=== PATIENT | male | born 1965 | race Hispanic/Latino ===

== ENCOUNTER 2019-08-12 13:25 | Inpatient (IN) | payer MEDICARE, OTHER ==
[2019-08-12] MEDS ORDERED: cefTRIAXone\\ROCEPHIN 2 GM VIAL ONE (13:51)
[2019-08-12] MEDS ORDERED: Vancomycin 1 GM/200 ML BAG ONE (13:51)
[2019-08-12] MEDS ORDERED: Sodium Chloride 0.9% 100 ML ONE ×2 (13:51)
[2019-08-12] MEDS ORDERED: Piperacillin/Tazobactam 4.5 GM VIAL ONE (13:51)
[2019-08-12 13:55] LABS: Hemoglobin 8.5 g/dL (14.0-18.0); Mean Corpuscular HGB CONC 31.6 g/dL (32.0-36.0); Mean Corpuscular Hemoglobin 28.3 pg (27.0-31.0); Mean Corpuscular Volume 89.5 fL (78.0-98.0); Mean Platelet Volume 7.8 fL (7.4-10.4); Platelet Count 410 thou/uL (130-400); Red Blood Cell (RBC) Count 3.01 mill/uL (4.70-6.10); White Blood Cell (WBC) Count 17.2 thou/uL (4.8-10.8)
[2019-08-12 14:15] LABS: ALT (SGPT) 70 U/L (8-55); AST (SGOT) 113 U/L (5-34); Albumin 2.8 g/dL (3.5-5.0); Alkaline Phosphatase 476 U/L (40-110); Anion Gap 16 mmol/L (10-20); BUN (Urea Nitrogen) 35 mg/dL (8.4-25.7); Bilirubin, Total 0.5 mg/dL (0.2-1.2); Calc. Creatinine Clearance 0 mL/min (70-130); Calcium 8.3 mg/dL (7.8-10.44); Carbon Dioxide 17 mmol/L (22-29); Chloride 93 mmol/L (98-107); Estimated GFR-MDRD 28; Globulin 4.2 g/dL (2.4-3.5); Potassium 5.1 mmol/L (3.5-5.1); Sodium 121 mmol/L (136-145)
[2019-08-12 14:17] LABS: Band 46 % (5-11); Hypochromia SLIGHT = 6-15 cells (100X) (0-5/hpf); Lymphocytes 1 % (21-51); MDiff Complete? YES; Metamyelocyte 1 % (0-0); Monocytes 2 % (0-10); Myelocyte 1 % (0-0); Neutrophil 50 % (42-75); Platelet Morphology Comment Appears Increased; Polychromasia SLIGHT = 2-3 cells (100X) (0-2/hpf); Reflex for Review?? NO
--- NOTE | 2019-08-12 14:21 | RAD ---
Chest one view HISTORY: Fever. FINDINGS: No comparison. Cardiac silhouette and pulmonary vasculature are unremarkable. Mediastinum i s midline. No confluent airspace consolidation or evidence of pneumothorax. IMPRESSION : No active cardiopulmonary abnormalities are demonstrated.
--- NOTE | 2019-08-12 14:24 | RAD ---
Right foot 3 views HISTORY: Ulceration. Diabetes. Fever. FINDINGS: No comparison. Old amputation deformities of the first, fourth, and fifth metatarsals. Abundant heterotopic ossifica tion about the tarsometatarsal joints. Erosive changes at the first tarsometatarsal joint. Prominent soft tissue swelling and gas about the medial and dorsal aspect of the foot. Evidence of ne uropathic joint best demonstrated on the lateral view. Prominent arterial calcifications. IMPRESSION : Prominent soft tissue swelling and soft tissue gas. Erosive changes at the first tarsometatarsal join t may represent infectious bone involvement. Evidence of neuropathic foot with destructive changes throughout the midfoot. Old amputation postoperative changes of the first, fourth, and fifth metatarsals. Atherosclerosis.
[2019-08-12 14:25] LABS: Glucose 676 mg/dL (70-105)
[2019-08-12] MEDS ORDERED: Insulin Regular 100 units/100 ml in NS IVPB SCH (15:00)
[2019-08-12] MEDS ORDERED: Insulin Regular 300 UNITS/3 ML VIAL ONE (15:12)
[2019-08-12 16:40] LABS: Lactic Acid 3.9 mmol/L (0.5-2.2)
[2019-08-12 17:05] LABS: Troponin I Less than 0.010 ng/mL (< 0.028)
[2019-08-12 17:22] LABS: Bilirubin Negative (Negative); Blood, Urine Trace (Negative); Clarity Clear (Clear); Glucose, Urine (Dipstick) Greater than 1000 mg/dL (Negative); Leukocyte Negative Leu/uL (Negative); Nitrite Negative (Negative); Protein, Urine (Dipstick) 20 mg/dL (Neg-Trace); RBC/HPF 0-3 HPF (0-3); Squamous Epithelial None Seen HPF (0-3); Urobilinogen Normal mg/dL (Less than 2); WBC/HPF 0-3 HPF (0-3)
[2019-08-12 17:23] LABS: Bacteria/HPF 1+ HPF (None Seen)
[2019-08-12] MEDS ORDERED: Vancomycin 1 GM in Premix Bag 1 BAG IVPB SCH (17:45)
[2019-08-12] MEDS ORDERED: HUMULIN R 100 UNITS in Sodium Chloride 0.9% 100 ML IVPB SCH (17:45)
[2019-08-12 18:09] LABS: Creatinine, Urine 60.66 mg/dL (63-166); Protein, Urine Random Quant 19 mg/dL (1-14); Sodium, Urine Less than 20 mmol/L (Not Available)
[2019-08-12] MEDS ORDERED: Bisacodyl 5 MG TAB PO PRN (18:35)
[2019-08-12] MEDS ORDERED: Ondansetron ODT 4 MG TAB SL PRN (18:53)
[2019-08-12] MEDS ORDERED: Ondansetron PF 4 MG/2 ML Vial IVP PRN (18:53)
[2019-08-12] MEDS: Dextrose 5 % And 0.9 % NaCl 1,000 ML IV SCH (19:24)
--- NOTE | 2019-08-12 19:55 | HP ---
PRIMARY CARE PROVIDER: [facility] in [place]. CHIEF COMPLAINT: Fever. HISTORY OF PRESENT ILLNESS: Mr. Wood is a pleasant 53-year-old gentleman, who was seen at [facility] on August 12, 2019. He has a history of left below-knee amputation, which he says happened at this hospital. However, I am unable to find old records. He also is missing great toe and 4th and 5th toes on his right foot. He has been seeing wound care at [facility] in [place]. He has been feeling unwell over the last couple of days. He felt feverish. Today, he spiked another fever. He denies any cough. He denies any chest pain. He denies any shortness of breath. He reports pain in the right leg, but he is unable to describe it further. In the emergency room, he was found to be hypotensive, hyperglycemic, and abnormal liver function test. He has been referred to the hospitalist for admission. He is also being ruled out for COVID. REVIEW OF SYSTEMS: All systems were reviewed and found to be negative except for the pertinent positives mentioned above. PAST MEDICAL HISTORY: Diabetes mellitus type 2, dyslipidemia, hypertension, and gastroesophageal reflux disease. PAST SURGICAL HISTORY: Left below-knee amputation, right great toe and 4th and 5th toe amputation. SOCIAL HISTORY: The patient denies tobacco use, alcohol use, or recreational drug use. FAMILY HISTORY: Significant for diabetes mellitus in his mother. ALLERGIES: NO KNOWN DRUG ALLERGIES. CURRENT MEDICATIONS: 1. Januvia 100 mg daily. 2. Metformin 500 mg 2 times a day. PHYSICAL EXAMINATION: GENERAL: On examination, Mr. Wood is awake and alert, not in acute distress. VITAL SIGNS: Blood pressure is 112/72, pulse 94, respiratory rate 18, and oxygen saturation 100% on room air. T-max in the emergency room was 99.5 degrees Fahrenheit. EYES: No scleral icterus, no conjunctival pallor. ENT: Dry mucosal membranes. No oropharyngeal erythema or exudates. NECK: Supple, nontender, trachea is midline. RESPIRATORY: Accessory muscles of breathing are not active. Chest wall movements are symmetric bilaterally. LUNGS: Clear to auscultation without wheeze, rhonchi, or crepitations. CARDIOVASCULAR: S1 and S2 are heard, regular. No pericardial rub. ABDOMEN: Soft, nontender, bowel sounds are heard. NEUROLOGIC: Cranial nerves 2 through 12 are intact. MUSCULOSKELETAL: Status post left BKA. s/p R great toe, 4th and 5th toes amputation. SKIN: Right foot is swollen, with discharge. There is some fluctuance. PSYCHIATRIC: Normal mood, normal affect, the patient is oriented to person and place. LYMPHATIC: No cervical lymphadenopathy. LABORATORY DATA: Mr. Wood's labs and investigations were reviewed. I reviewed his electrocardiogram, which shows normal sinus rhythm, no ST changes to suggest an acute coronary syndrome. I also reviewed his chest x-ray, which does not show any pulmonary infiltrates. X-ray of the right foot showed prominent soft tissue swelling and soft tissue gas. Erosive changes at the first tarsometatarsal joint may represent infectious bone involvement. He also had evidence of neuropathic foot with destructive changes throughout the midfoot and old amputation, postoperative changes of the 1st, 4th, and 5th metatarsals. He has leukocytosis with 17,200 white cells, of which 50% are neutrophils, and 46% are band neutrophils. He has normocytic anemia with hemoglobin 8.5. Platelet count is elevated at 410,000. Sodium is decreased at 121, but corrected for elevated glucose is around 130. Glucose is elevated at 676. It subsequently trended down to 190. Potassium is normal at 5.1. Blood urea nitrogen is elevated at 35, creatinine is elevated at 2.42. AST and ALT are elevated at 113 and 70 respectively. Alkaline phosphatase is elevated at 476. Troponin I is normal. Albumin is decreased at 2.8. Urinalysis shows glucose, blood, and bacteria. Beta-hydroxybutyrate level is normal at 0.22. ASSESSMENT AND PLAN: Mr. Wood is a pleasant 53-year-old gentleman, who was seen at [facility] on August 12, 2019. His problem list includes: 1. Sepsis: Mr. Wood is presenting with sepsis, most likely secondary to diabetic foot infection. He is also being ruled out for COVID-19. He will be admitted to the hospital for further management. He will receive vancomycin, Zosyn, and clindamycin. Infectious Disease Service will be consulted. 2. Acute kidney injury: Most likely secondary to sepsis and hypotension. The patient was hypotensive on presentation to the emergency room. He has been resuscitated with intravenous fluids. Nephrology Service has been consulted. I will continue him on intravenous fluids. 3. Diabetes mellitus type 2: The patient improved significantly with insulin drip. At this point in time, I will change his intravenous fluids to D5 normal saline at 150 mL an hour and decrease his insulin drip to 2 units/hour, currently running at 6 units/hour. This is to prevent possible hypoglycemia overnight, especially in the context of renal failure. 4. Abnormal liver function test: Etiology is unclear. The patient denies alcohol use. I will recheck his LFTs. This could be secondary to hypotension that he experienced initially. If LFTs continue to be abnormal, we will get imaging once COVID-19 is ruled out. 5. Deep venous thrombosis prophylaxis with heparin. Many thanks for allowing me to participate in your patient's care. Please feel free to contact me with any questions or concerns. LEVEL OF RISK: High. LEVEL OF COMPLEXITY: High. Job ID: [id number] MTDD
[2019-08-12] MEDS ORDERED: Clindamycin/D5W 900 MG in Premix Bag 1 BAG IVPB SCH ×2 (20:00→22:00)
[2019-08-12 20:14] VITALS: BMI 23.6
[2019-08-12] MEDS: Heparin 5,000 UNITS/ML VIAL SC SCH (20:54)
[2019-08-12 21:46] LABS: Albumin 2.3 g/dL (3.5-5.0); Anion Gap 12 mmol/L (10-20); BUN (Urea Nitrogen) 30 mg/dL (8.4-25.7); BUN/Creatinine Ratio 17.44; Calc. Creatinine Clearance 45 mL/min (70-130); Calcium 8.2 mg/dL (7.8-10.44); Carbon Dioxide 22 mmol/L (22-29); Chloride 102 mmol/L (98-107); Estimated GFR-MDRD 41; Glucose 216 mg/dL (70-105); Phosphorus 2.6 mg/dL (2.3-4.7); Potassium 4.8 mmol/L (3.5-5.1); Sodium 131 mmol/L (136-145)
--- NOTE | 2019-08-12 21:49 | CON ---
DATE OF CONSULTATION: 08/12/2019 SERVICE: Nephrology. REASON FOR CONSULTATION: Hyponatremia and acute kidney injury. REQUESTING PHYSICIAN: Dr. Antonio Vincent. CHIEF COMPLAINT: Worsening right foot ulcer and fever. HISTORY OF PRESENT ILLNESS: A 53-year-old male with known history of diabetes complicated with diabetic foot ulcer, status post left BKA and partial amputation of medial three toes on the right, who was brought in to the hospital due to worsening right foot ulcer associated with fever and chills as well as generalized weakness, nausea, dry heaves, and poor oral intake. The patient also reported some cough in the last several days. Due to above symptoms, the patient presented to the hospital, where he was found to be hypotensive. Impression of sepsis was made and the patient was treated with IV fluid resuscitation with improvement. He also was found to have markedly elevated blood glucose of 670, hence started on insulin infusion. He denied diarrhea, but admitted to drainage from the right foot as well as pain and some swelling. He denied focal weakness or headache, hematuria, or dysuria. He also was found to have elevated creatinine and hyponatremia, necessitating Nephrology consult. Note that the patient was admitted to this hospital previously, but was in a different name of Nina Powell. PAST MEDICAL HISTORY: 1. Diabetic mellitus. 2. Diabetic foot ulcer. 3. Diabetic gastroparesis. 4. Colonic polyp on colonoscopy. 5. Gastritis. PAST SURGICAL HISTORY: 1. Left BKA. 2. Amputation of right great toe as well as fourth and fifth toes. FAMILY HISTORY: Significant for diabetes and hypertension in mother. The patient currently lives with sister and [id number]. He is . Father from cancer. SOCIAL HISTORY: The patient is a nondrinker and a nonsmoker. He is from his . He denied recreational drug use. ALLERGIES: LISINOPRIL. HOME MEDICATIONS: 1. Januvia 100 mg daily. 2. Metformin 500 mg p.o. b.i.d. REVIEW OF SYSTEMS: A 12-point review of system performed was negative other than pertinent positives and negatives included in the history of present illness. PHYSICAL EXAMINATION: VITAL SIGNS: Blood pressure 95/58, pulse 94, respiratory rate 18, SpO2 of 100% on room air, and T-max is 99.5. GENERAL: Middle-aged male, chronically ill-looking, who appear older than stated age. Afebrile, anicteric, and acyanotic. HEENT: Normocephalic and atraumatic. Oral mucosa is mildly dry. There is, however, no erythema or exudate. NECK: Supple and nontender with no JVD. CARDIOVASCULAR: Regular rhythm and rate with normal heart sounds 1 and 2. RESPIRATORY: Fair air entry bilaterally with few transmitted breath sounds. No obvious crackle or rhonchi or use of accessory muscles appreciated. GI: Flat, soft, nontender, and nondistended with normal bowel sounds. EXTREMITIES: Left BKA noted. Marked swelling of right foot with medial with a necrotic and dark area with some serosanguineous drainage on the medial aspect noted. Mild erythema and edema of the foot and lower aspect of the leg noted. ATTENDING ANESTHESIOLOGIST: Conscious, alert, and oriented x3 with appropriate mental status. SKIN: Rather dry except right foot and distal leg edema. DIAGNOSTIC DATA: CBC showed WBC count of 17.2, hemoglobin of 8.5, platelet of 410. BMP showed sodium 121, potassium 5.1, chloride 93, CO2 of 17, BUN 35, creatinine 2.42, glucose 676, calcium 8.3. Total bilirubin 0.5, AST 113, ALT 70, alkaline phosphatase 476, total protein 7.0, albumin 2.8, globulin 4.2. Cardiac markers showed CK 19. Troponin less than 0.010. Lactic acid is 3.9. Review of medical records showed that the patient had creatinine of 1.1 in March 2018. Urinalysis showed yellow clear urine with pH of 5.0, specific gravity of 1.021, urine protein of 20 mg/dL, urine glucose greater than 1000 mg/dL, negative ketone, trace blood, negative nitrite, bilirubin, or leukocyte esterase. Microscopy showed 0 to 3 rbc and 0 to 3 wbc with 1+ bacteria. Chest x-ray showed no active cardiopulmonary abnormality demonstrated. Right foot x-ray showed prominent soft tissue swelling and soft tissue gas, erosive changes at the first tarsometatarsal joint, which may represent infectious bone involvement. Evidence of neuropathy foot with destructive changes throughout the midfoot as well as old amputation postoperative changes in the first, fourth, and fifth metatarsal as well as atherosclerosis noted. ASSESSMENT: 1. Acute kidney injury: This most likely related to hemodynamic factors due to severe sepsis and from osteomyelitis and possible right foot abscess. Acute tubular necrosis is a concern. Chronic component cannot be ruled out since most recent lab result in the medical record was done on March 2018. It showed creatinine of 1.1. Currently, creatinine is 2.4. 2. Hyponatremia: Most likely due to pseudohyponatremia related to hyperglycemia and appropriate ADH secretion in a patient with volume contraction. Liver pathology may also be contributory as the patient has abnormal liver enzymes. 3. Metabolic acidosis, most likely due to severe sepsis and lactic acidosis. The patient also reportedly is on metformin. This can lead to worsening acidosis. 4. Volume contraction/dehydration. 5. Severe sepsis from osteomyelitis and abscess of right foot. 6. Diabetes mellitus with hyperglycemia, poorly controlled due to diabetic foot ulcer. 7. Status post left below-knee amputation. 8. Chronic gastritis/diabetic gastroparesis. PLAN: 1. We will recommend continuation of crystalloid and treament of hyperglycemia 2. We will also get urine and plasma osmolality as well as urine electrolytes. 3. We will avoid nephrotoxic agents. 4. We will repeat BMP and adjust fluid as needed. 5. Antibiotics and further management of right foot cellulitis ulcer and abscess as per primary attending. Many thanks for involving us in the care of this patient. We will follow along with you. Job ID: [id number] MTDD
[2019-08-12] MEDS: Piperacillin/Tazobactam 2.25 GM in Sodium Chloride 0.9% 100 ML IVPB SCH (22:07)
[2019-08-12] MEDS: Acetaminophen 500 MG TAB PO PRN (22:08)
[2019-08-13] MEDS ORDERED: Sodium Chloride 0.9% 500 ML IV SCH (01:30)
[2019-08-13] MEDS: Dextrose 5 % And 0.9 % NaCl 1,000 ML IV SCH ×2 (02:25→08:05)
[2019-08-13 04:08] LABS: #Eosinphils 0.1 thou/uL (0.0-0.7); #Lymphocytes 1.2 thou/uL (1.20-3.40); #Monocytes 1.2 thou/uL (0.11-0.59); #Neutrophils 11.5 thou/uL (1.40-6.50); %Basophils 0.2 % (0.0-1.0); %Eosinophils 0.6 % (0.0-10.0); %Lymphocytes 8.2 % (21.0-51.0); %Monocytes 8.7 % (0.0-10.0); %Neutrophils 82.3 % (42.0-75.0); Hemoglobin 6.7 g/dL (14.0-18.0); Mean Corpuscular HGB CONC 32.1 g/dL (32.0-36.0); Mean Corpuscular Hemoglobin 28.5 pg (27.0-31.0); Mean Corpuscular Volume 88.7 fL (78.0-98.0); Mean Platelet Volume 7.7 fL (7.4-10.4); Platelet Count 347 thou/uL (130-400); RBC Distribution Width 13.9 % (11.5-14.5); Red Blood Cell (RBC) Count 2.37 mill/uL (4.70-6.10)
[2019-08-13] MEDS: Piperacillin/Tazobactam 2.25 GM in Sodium Chloride 0.9% 100 ML IVPB SCH ×3 (04:10→15:43)
[2019-08-13 04:26] LABS: Phosphorus 2.6 mg/dL (2.3-4.7)
[2019-08-13 04:27] LABS: Lactic Acid 0.9 mmol/L (0.5-2.2)
[2019-08-13 04:32] LABS: ALT (SGPT) 43 U/L (8-55); AST (SGOT) 48 U/L (5-34); Albumin 2.2 g/dL (3.5-5.0); Alkaline Phosphatase 385 U/L (40-110); Anion Gap 10 mmol/L (10-20); BUN (Urea Nitrogen) 28 mg/dL (8.4-25.7); Bilirubin, Total 0.3 mg/dL (0.2-1.2); Calc. Creatinine Clearance 49 mL/min (70-130); Calcium 7.7 mg/dL (7.8-10.44); Carbon Dioxide 20 mmol/L (22-29); Chloride 106 mmol/L (98-107); Estimated GFR-MDRD 45; Globulin 3.3 g/dL (2.4-3.5); Glucose 170 mg/dL (70-105); Magnesium 1.5 mg/dL (1.6-2.6); Potassium 4.1 mmol/L (3.5-5.1); Protein, Total 5.5 g/dL (6.0-8.3); Sodium 132 mmol/L (136-145)
[2019-08-13] MEDS: Clindamycin/D5W 900 MG in Premix Bag 1 BAG IVPB SCH ×2 (05:16→14:59)
[2019-08-13] MEDS: Ondansetron PF 4 MG/2 ML Vial SLOW IVP PRN (07:23)
[2019-08-13] MEDS ORDERED: Vancomycin HCl 750 MG in Sodium Chloride 0.9% 250 ML 250 ML IVPB SCH (09:00)
--- NOTE | 2019-08-13 09:17 | CON ---
DATE OF CONSULTATION: HISTORY OF PRESENT ILLNESS: Andre Wood is a 53-year-old gentleman, who was brought to the ER with a diagnosis of sepsis secondary to a diabetic sore on his foot. He has been seeing Wound Care for several days, got worse. Fever up to 102, blood pressure was 84/46 in [place]. He is now in the ICU because of Coronavirus rule out protocol. Though he is awake, alert, responsive, appears to be in no distress. PAST MEDICAL HISTORY: 1. Diabetes. 2. Hypertension. 3. Renal failure. 4. Reflux. PREVIOUS SURGERIES: Left BK amputation. SOCIAL HISTORY: Alcohol, none. Tobacco, none. HOME MEDICATIONS: Include as per the ER note, to be verified. 1. Januvia 100 mg. 2. Metformin 500 two a day. ALLERGIES: NONE. REVIEW OF SYSTEMS: Ten-point negative. PHYSICAL EXAMINATION: VITAL SIGNS: Pulse 77, blood pressure 101/54, respiratory rate 20, saturations are 93%. CHEST: No wheezing or crackles. CARDIAC: Normal S1, S2. No gallops. ABDOMEN: Soft without any mass. NEUROLOGIC: He is awake, alert, and responsive. LABORATORY DATA: H and H are low at 6 and 21, white count 14,000. Creatinine is 1.59. His glucose is 173. His liver function is slightly elevated. ASSESSMENT AND PLAN: Diabetes with sepsis syndrome. He is on Zosyn, vancomycin, clindamycin, more than adequate antibiotics. He is on insulin drip. His azotemia appears to be at his baseline. Pulmonary/Critical Care will follow while in the ICU. At this point, nothing additional to offer. Continue hydration. Await results of his Coronavirus, if negative, he can be transferred out of the ICU. TIME SPENT: 70 minutes, 50% direct patient care. Job ID: [id number]
[2019-08-13] MEDS: Heparin 5,000 UNITS/ML VIAL SC SCH ×3 (09:36→21:15)
[2019-08-13 10:21] LABS: SARS-CoV-2 MS2 Positive; SARS-CoV-2 N Gene Negative; SARS-CoV-2 S Gene Negative; SARS-CoV-2 orf1ab Negative
[2019-08-13] MEDS ORDERED: Insulin Glargine 10 UNITS in Pre-Filled Syringe 1 EACH SC SCH (10:45)
[2019-08-13] MEDS ORDERED: Magnesium 2 GM/50 ML 2 GM in Premix Bag 1 BAG IVPB SCH ×2 (10:45)
[2019-08-13] MEDS: Sodium Chloride 0.9% 1,000 ML IV SCH (11:43)
[2019-08-13] MEDS: Acetaminophen 500 MG TAB PO PRN (15:27)
--- NOTE | 2019-08-13 16:18 | PRG ---
DATE OF SERVICE: 08/13/2019 SERVICE: Nephrology. SUBJECTIVE: A 53-year-old male patient with known history of hypertension, diabetes mellitus, associated with diabetic foot ulcer, status post left BKA and partial amputation of right foot toes, admitted due to worsening right foot ulcer swelling associated with fever and generalized weakness. Nephrology is following the patient for acute kidney injury and hyponatremia. The patient reports feeling better. Denied abdominal pain, nausea, or vomiting. OBJECTIVE: VITAL SIGNS: Temperature 98.9, pulse 88, respiratory rate 19, SpO2 of 99% on room air, and blood pressure 118/71. GENERAL: Comfortable male patient, in no obvious distress. Afebrile. Anicteric. Acyanotic. HEENT: Normocephalic, atraumatic. Oral mucosa is moist. NECK: Supple with no JVD. CARDIOVASCULAR: Regular rhythm and rate with normal heart sounds 1 and 2. RESPIRATORY: Fair air entry bilaterally with few bibasilar crackles posteriorly. GASTROINTESTINAL: Full, soft, nontender, and nondistended with normal bowel sounds. EXTREMITIES: Left BKA noted. Right foot covered with dressing. Distal right leg edema noted with no erythema. CENTRAL NERVOUS SYSTEM: Conscious, alert, oriented x3 with appropriate mental status. Cranial nerves II through XII are grossly intact. LABORATORY DATA: CBC showed WBC count of 14.0, hemoglobin of 6.7, MCV of 88.7, and platelet of 347. Chemistry shows sodium 132, potassium 4.1, chloride 106, CO2 of 20, BUN 28, creatinine 1.59, glucose 170, calcium 7.7, magnesium 1.5, total bilirubin 0.3, phosphorus 2.6, AST 48, ALT 43, alkaline phosphatase 385, total protein 5.5, and albumin 2.2. ASSESSMENT: 1. Acute kidney injury: Due to hemodynamic factors related to volume depletion and hypotension. Creatinine is trending downward with optimization of hemodynamics and IV fluid therapy. 2. Hyponatremia: Due to appropriate antidiuretic hormone secretion in a patient with volume contraction as well as pseudohyponatremia related to hyperglycemia. Plasma sodium is trending up from 122 to 132. 3. Hypomagnesemia. 4. Abnormal liver enzymes. 5. Right foot osteomyelitis, abscess, and cellulitis. PLAN: 1. Continue crystalloid therapy. 2. Insulin therapy as per primary attending. 3. We will replete serum magnesium with magnesium sulfate. 4. We will repeat renal function test in the morning. 5. Anemia management as per primary attending. 6. Further treatment to follow depending on hospital course. 7. We will get iron and chemistry in the morning. Job ID: [id number]
[2019-08-13] MEDS ORDERED: Dextrose 50% Abboject 50 ML SYRINGE IVP PRN (18:19)
[2019-08-13] MEDS ORDERED: Dextrose 5% in Water 1,000 ML IV PRN (18:19)
[2019-08-13] MEDS: HumaLOG 300 UNITS/3 ML VIAL SC PRN ×2 (18:21→21:47)
[2019-08-13] MEDS: cefTRIAXone\\ROCEPHIN 2 GM in Sodium Chloride 0.9% 100 ML IVPB SCH (18:22)
--- NOTE | 2019-08-13 19:07 | PDOC.HOSPP ---
- Subjective Encounter Date: 08/13/19 Encounter Time: 19:05 Subjective: Pt seen for followup re; sepsis. Feels much better today. - Objective Vital Signs & Weight: Vital Signs (12 hours) Temp Pulse Resp BP Pulse Ox 08/13/19 13:00 98.9 F 87 19 113/65 113 H 08/13/19 10:01 98.0 F 86 16 120/68 99 08/13/19 09:46 98.1 F 85 20 126/73 98 08/13/19 08:00 95 Weight Admit Weight 146 lb Weight 145 lb 15.136 oz Most Recent Monitor Data Heart Rate from ECG 75 NIBP 156/96 NIBP BP-Mean 116 Respiration from ECG 22 SpO2 99 I&O: 08/12/19 08/13/19 08/14/19 06:59 06:59 06:59 Intake Total 2090 740 Output Total 300 Balance 1790 740 Result Diagrams: 08/13/19 03:50 08/13/19 03:50 Additional Labs: Accuchecks 08/13/19 08/13/19 08/13/19 17:43 11:53 07:33 POC Glucose 343 H 164 H 145 H 08/13/19 08/13/19 08/13/19 06:13 05:25 04:19 POC Glucose 173 H 176 H 199 H 08/13/19 08/13/19 08/13/19 02:44 02:08 01:00 POC Glucose 135 H 143 H 129 H 08/13/19 08/12/19 08/12/19 00:04 23:04 22:18 POC Glucose 174 H 179 H 241 H 08/12/19 08/12/19 21:10 19:41 POC Glucose 220 H 176 H Labs and MARs reviewed by me EKG Reviewed by me: Yes (Tele: NSR) Hospitalist ROS - Review of Systems Constitutional: denies: fever, chills, sweats, weakness, malaise Respiratory: denies: cough, shortness of breath, SOB with excertion, pleuritic pain, wheezing Cardiovascular: denies: chest pain, palpitations, orthopnea, paroxysmal noc. dyspnea, edema, light headedness Gastrointestinal: denies: nausea, vomiting, abdominal pain, diarrhea, constipation, melena, hematochezia Musculoskeletal: reports: foot pain. denies: neck pain, shoulder pain, arm pain , back pain, hand pain, leg pain Skin: reports: lesions - Medication Medications: Active Medications Generic Name Dose Route Start Last Admin Trade Name Alanq PRN Reason Stop Dose Admin Acetaminophen 1,000 mg 08/12/19 20:40 08/13/19 15:27 Tylenol PO 1,000 mg Q8H PRN Administration Moderate to Severe Pain (6-10) Heparin Sodium (Porcine) 5,000 units 08/12/19 21:00 08/13/19 14:59 Heparin SC 5,000 units TID GERI Administration Sodium Chloride 1,000 mls @ 75 mls/hr 08/13/19 10:45 08/13/19 11:43 Normal Saline 0.9% IV 1,000 mls .[id number] GERI Administration Ceftriaxone Sodium 2 gm/ 100 mls @ 200 mls/hr 08/13/19 18:00 08/13/19 18:22 Sodium Chloride IVPB 100 mls 1800 GERI Administration Insulin Human Lispro 0 units 08/13/19 18:19 08/13/19 18:21 Humalog SC 8 unit .MODERATE SLIDING SC PRN Administration MODERATE SLIDING SCALE Protocol Ondansetron HCl 4 mg 08/13/19 07:11 08/13/19 07:23 Zofran SLOW IVP 4 mg Q6H PRN Administration Nausea/Vomiting - Exam General Appearance: awake alert Eye: anicteric sclera ENT: moist mucosa Neck: supple, symmetric, no thyromegaly, no lymphadenopathy Heart: RRR, no gallops, no rubs Respiratory: CTAB, no wheezes, no rales, no ronchi, normal chest expansion Gastrointestinal: soft, non-tender, non-distended, normal bowel sounds Skin - other findings: wound as documented Musculoskeletal - other findings: s/p L BKA Psychiatric: normal affect, normal behavior, oriented to person, oriented to place Hosp A/P (1) Sepsis Code(s): A41.9 - SEPSIS, UNSPECIFIED ORGANISM Status: Acute (2) REN (acute kidney injury) Code(s): N17.9 - ACUTE KIDNEY FAILURE, UNSPECIFIED Status: Acute (3) Diabetic infection of right foot Code(s): E11.628 - TYPE 2 DIABETES MELLITUS WITH OTHER SKIN COMPLICATIONS; L08.9 - LOCAL INFECTION OF THE SKIN AND SUBCUTANEOUS TISSUE, UNSP Status: Chronic (4) HTN (hypertension) Code(s): I10 - ESSENTIAL (PRIMARY) HYPERTENSION Status: Chronic (5) DM2 (diabetes mellitus, type 2) Status: Chronic - Plan Pt clinically improving. Continue ceftriaxone. COVID19 test negative. Gen surgery consulted. Off of insulin drip, transition to SC insulin. Transfer to surgical floor. Renal failure improving.
[2019-08-13] MEDS: metroNIDAZOLE 250 MG TAB PO SCH (20:51)
[2019-08-13] MEDS: metroNIDAZOLE 500 MG in Premix Bag 1 BAG IVPB SCH (21:15)
--- NOTE | 2019-08-14 00:23 | CON ---
DATE OF CONSULTATION: 08/13/2019 REASON FOR CONSULTATION: Inflammatory process, right foot with bacteremia. HISTORY OF PRESENT ILLNESS: This is a 53-year-old, first admission to [facility] who has a history of type 2 diabetes, peripheral vascular disease and left BKA and has had a chronic right foot plantar ulcer. He also has Charcot arthropathy for quite a while and over the past few days, he has developed inflammatory process with swelling, erythema, drainage, and extension of the inflammatory process towards the mid foot and hindfoot region associated with fever, general malaise. He arrived to the emergency room tachycardic and hypotensive. He was treated for sepsis and admitted to the ICU and is currently on broad-spectrum coverage. Two sets of blood cultures had group B strep, retrieved on the . He is now awake, alert, feeling better. He denies any headaches. No change in visual symptoms, sore throat, odynophagia, or dysphagia. No vomiting or cough. No abdominal pain or diarrhea. He is voiding in the urinal. PAST MEDICAL HISTORY: Type 2 diabetes, hypertension, GERD, peripheral vascular disease, infection of left foot with gangrene which led to left BKA. SOCIAL HISTORY: Never smoker. Disabled. ALLERGIES: NONE. CURRENT MEDICATIONS: 1. Tylenol. 2. Dulcolax. 3. Clindamycin. 4. Insulin. 5. Zosyn. 6. Vancomycin. FAMILY HISTORY: Diabetes type 2. PHYSICAL EXAMINATION: VITAL SIGNS: T-max 100.1, blood pressure 113/65, pulse 87, O2 saturation is 99%. SKIN: Shows the right foot with obvious Charcot deformity and erythema. There is obvious inflammatory process with sort of a cystic consistency of the mid and hindfoot region. The skin is discolored with darkening of the skin suggestive of necrosis in the mid plantar aspect of the right foot. There is a round-shaped 1.5 cm ulceration with necrotic base and callus surrounding this ulceration. There is erythema extending from that ulcer all the way to the midfoot and hindfoot regions. GENITOURINARY: The patient is voiding in the urinal. GENERAL: He is chronically ill appearing, but in no distress. HEENT: Ocular movements conjugate. Oral cavity dry. Numerous missing teeth. NECK: No jugular vein distention. Neck is supple. LUNGS: Symmetric air entry. A few faint wheezing and crackles at the bases. HEART: S1 and S2. Regular rate. No S3 or S4. ABDOMEN: Soft. Nondistended. Nontender. No ascites. No bladder distention. MUSCULOSKELETAL: Pulses are 1+ in popliteals. I could not feel right foot pulses. The foot is warm, though markedly deformed. NEUROLOGIC: His cognitive function appears to be intact. LABORATORY DATA: White cell count was 17, down to 14; hemoglobin 6.7, platelets 347 with 82% neutrophils. Sodium 132, creatinine 1.59, AST 48, ALT 43, bilirubin 0.3, alkaline phosphatase 385, albumin 2.2. Urinalysis is unremarkable except for glycosuria. COVID PCR nondetected. IMAGING: Foot x-ray with soft tissue swelling, soft tissue gas, erosive changes in the first tarsometatarsal joint, destructive changes throughout the mid foot. ASSESSMENT: Diabetes type 2, neuropathy with Charcot arthropathy right side. Prior below-knee amputation, left side. Sepsis syndrome with group B strep bacteremia. DISCUSSION: The patient most likely has necrotizing process in the mid foot region and would need surgical consultation. Imaging study could include an MRI but we will have surgeon take a look at him first, he may end up with a BKA on the right side as well. The patient will be transitioned to Flagyl and Rocephin. Discontinue current antimicrobials. Job ID: [id number]
--- NOTE | 2019-08-14 01:47 | CON ---
DATE OF CONSULTATION: REASON FOR CONSULTATION: Sepsis due to foot infection. HISTORY OF PRESENT ILLNESS: Mr. Powell is a 53-year-old diabetic male, who presented to the emergency room with fever and feeling generally unwell. He had been seen at the [facility] in [place] for 4 weeks for a wound on his right foot and had been receiving dressing changes. He had two days of fever before coming into the hospital. On arrival, he was hypotensive and septic and was admitted to the ICU and put on COVID precautions. His COVID test has returned negative and he is feeling better, and his blood pressure has returned to normal range. He states that he has been having problems with his foot for about 4 weeks that really only got bad a couple of days before he came to the hospital. He has a history of a left BKA in the past due to infection in his foot and has undergone amputations of 1st, 4th, and 5th toes on the right. PAST MEDICAL HISTORY: Diabetes, hyperlipidemia, hypertension, GERD. ALLERGIES: HE HAS NO KNOWN DRUG ALLERGIES. PAST SURGICAL HISTORY: Left below-knee amputation and right 1st, 4th and 5th toe amputations. OUTPATIENT MEDICATIONS: Include; 1. Januvia. 2. Metformin. Inpatient medications are reviewed. He is on multiple antibiotics and was previously on an insulin drip. This has been discontinued. REVIEW OF SYSTEMS: Ten system review of systems is negative except per HPI. FAMILY HISTORY: Noncontributory. SOCIAL HISTORY: The patient does not smoke, drink, or use illicit drugs. PHYSICAL EXAMINATION: VITAL SIGNS: Normal. The patient is afebrile. HEENT: Unremarkable. NECK: Supple without lymphadenopathy or thyroid nodules. HEART: Regular in its rate and rhythm without murmurs, rubs, or gallops. LUNGS: Clear to auscultation bilaterally. ABDOMEN: Soft, nontender, nondistended without palpable masses or hernias. EXTREMITIES: He has a healed left below-knee amputation and a prosthesis present at the bedside. His right foot is swollen and malodorous with an ulcer on the plantar surface and an eschar on the dorsal surface exuding pus. He has palpable popliteal pulses bilaterally. I can not appreciate a pulse on his right foot, but it is extremely swollen. NEUROLOGIC: He has peripheral neuropathy. No other focal findings. PSYCHIATRIC: Alert, oriented, and appropriate. LABORATORY DATA: White count is elevated at 14,000, although this is down somewhat from admission. Hematocrit is low at 21. He was transfused this morning. Alkaline phosphatase is high at 385. BUN and creatinine are mildly elevated at 28 and 1.59. IMAGING: X-ray of the foot reveals neurotrophic changes of the midfoot and irregularity of the 1st metatarsal surface consistent with possible infection. There is some gas in the soft tissues as well. ASSESSMENT: Severe right foot infection into the deep tissues of the mid foot with resulting sepsis. The patient is improved on broad-spectrum antibiotics, but will require amputation of the foot. Due to the severity of the infection, I recommended a guillotine amputation followed by a close below-knee amputation in a few days after the swelling has gone down and the infection has receded. He is agreeable with this plan. He is ambulatory with his prosthesis using a cane to assist and is able to traverse steps. With appropriate rehabilitation, he should be able to ambulate with bilateral lower extremity prostheses, although he may require additional assistance or assistive devices. The patient has been placed on the OR schedule for first thing in the morning. All of his questions were answered. He is in agreement with the plan of care. Job ID: [id number]
[2019-08-14] MEDS: Acetaminophen 500 MG TAB PO PRN (03:32)
[2019-08-14] MEDS: metroNIDAZOLE 500 MG in Premix Bag 1 BAG IVPB SCH (03:32)
[2019-08-14] MEDS: Sodium Chloride 0.9% 1,000 ML IV SCH ×2 (03:32→12:10)
[2019-08-14] MEDS: HumaLOG 300 UNITS/3 ML VIAL SC PRN ×2 (05:55→17:24)
[2019-08-14 06:26] LABS: Iron 21 ug/dL (65-175); Iron Binding Capacity, Total 105 mcg/dL (261-462)
[2019-08-14 06:29] LABS: ALT (SGPT) 39 U/L (8-55); AST (SGOT) 49 U/L (5-34); Albumin 2.2 g/dL (3.5-5.0); Alkaline Phosphatase 501 U/L (40-110); Anion Gap 12 mmol/L (10-20); BUN (Urea Nitrogen) 17 mg/dL (8.4-25.7); Bilirubin, Total 0.4 mg/dL (0.2-1.2); Calc. Creatinine Clearance 72 mL/min (70-130); Calcium 7.7 mg/dL (7.8-10.44); Carbon Dioxide 20 mmol/L (22-29); Chloride 105 mmol/L (98-107); Estimated GFR-MDRD 71; Globulin 3.9 g/dL (2.4-3.5); Glucose 197 mg/dL (70-105); Iron Binding Capacity, Total 109 mcg/dL (261-462); Protein, Total 6.1 g/dL (6.0-8.3); Sodium 133 mmol/L (136-145)
[2019-08-14] MEDS ORDERED: Midazolam HCl 2 mg/2 ml Vial ONE (06:47)
[2019-08-14] MEDS ORDERED: Fentanyl 100 MCG/2 ML VIAL ONE ×2 (06:47→07:15)
[2019-08-14] MEDS ORDERED: Lidocaine 1% (PF) 30 ML VIAL ONE (06:47)
[2019-08-14] MEDS ORDERED: Bacitracin Zinc Ointment 30 gm TUBE ONE (07:16)
[2019-08-14 08:06] LABS: Band 7 % (5-11); Hemoglobin 8.1 g/dL (14.0-18.0); Lymphocytes 11 % (21-51); MDiff Complete? YES; Mean Corpuscular HGB CONC 32.8 g/dL (32.0-36.0); Mean Corpuscular Hemoglobin 28.7 pg (27.0-31.0); Mean Corpuscular Volume 87.4 fL (78.0-98.0); Mean Platelet Volume 7.7 fL (7.4-10.4); Monocytes 6 % (0-10); Myelocyte 2 % (0-0); Neutrophil 74 % (42-75); Platelet Count 397 thou/uL (130-400); Platelet Morphology Comment Appears Adequate; RBC Morphology Normal; Red Blood Cell (RBC) Count 2.83 mill/uL (4.70-6.10); White Blood Cell (WBC) Count 13.2 thou/uL (4.8-10.8)
[2019-08-14] MEDS ORDERED: Promethazine HCl 25 MG/ML VIAL IM PRN (08:24)
[2019-08-14] MEDS ORDERED: PACU-Morphine 4MG/ML VIAL SLOW IVP PRN (08:24)
[2019-08-14] MEDS ORDERED: Promethazine HCl 25 MG/ML VIAL SLOW IVP PRN (08:24)
[2019-08-14] MEDS ORDERED: Ondansetron HCl/PF 4 MG/2 ML Vial IVP PRN (08:24)
[2019-08-14] MEDS ORDERED: HYDROmorphone 2 MG/ML VIAL SLOW IVP PRN (08:24)
[2019-08-14] MEDS: metroNIDAZOLE 250 MG TAB PO SCH ×3 (08:29→21:53)
--- NOTE | 2019-08-14 08:46 | PDOC.OP ---
Operative Note - Operative Note Operative Note: PROCEDURE: Right leg guillotine amputation at the ankle SURGEON: Timothy Rodarte M.D. DATE: 08/14/2019 PREOPERATIVE DIAGNOSIS: Severe right foot infection into the midfoot POSTOPERATIVE DIAGNOSIS: Severe right foot infection into the midfoot HISTORY: Patient who presented with severe sepsis and hypotension due to a right foot infection. X-ray showed osteomyelitic changes at the right metatarsal tarsal joints there was a large abscess to the deep tissues of the midfoot. Recommendation was made to proceed with guillotine amputation to allow the infection to clear followed by a formal right below-knee amputation with closure of the stump later in the week. FINDINGS: Good blood flow at the ankle. No obvious infection extending above the foot. PROCEDURE IN DETAIL: After informed consent was obtained and a right lower extremity block placed by the pain service the patient was taken to the operating room. He was placed in the supine position and general anesthesia by LMA was administered. He was prepped and draped in standard sterile fashion excluding the right foot from the operative field. A Gigli saw was used to amputate the right foot at the level of the ankle and the patient's anterior tibial, posterior tibial, and peroneal arteries were clamped and suture ligated. Several small muscular and skin bleeding sites were controlled with electrocautery and the wound was irrigated. Hemostasis was verified and a wet- to-dry dressing was placed and secured with an Osorio wrap. Patient tolerated procedure well. Estimated blood loss was 50 mL's. No complications. Specimen is right foot. A culture of the deep abscess was sent to microbiology as well.
[2019-08-14] MEDS: Heparin 5,000 UNITS/ML VIAL SC SCH ×3 (11:11→21:53)
[2019-08-14] MEDS ORDERED: Ergocalciferol 1.25 MG(50,000 UNITS) CAP PO SCH (11:45)
[2019-08-14] MEDS: Insulin Glargine 10 UNITS in Pre-Filled Syringe 1 EACH SC SCH (12:09)
--- NOTE | 2019-08-14 12:31 | PRG ---
DATE OF SERVICE: SERVICE: Nephrology. SUBJECTIVE: A 53-year-old male with known history of diabetes, complicated with diabetic foot ulcers associated with left BKA, admitted with worsening right foot swelling and ulcer. Nephrology is following patient for acute kidney injury and electrolyte derangements. The patient had amputation of the right lower extremity at the ankle earlier today. No new problem. OBJECTIVE: VITAL SIGNS: Temperature 98.4, pulse 77, respiratory rate 20, SpO2 of 100% on 2 L nasal cannula, blood pressure is 139/89. I and O in the last 24 hours showed total intake of 4163 with total output of 2300. GENERAL: Male patient in no obvious distress. Afebrile, anicteric, and acyanotic. HEENT: Normocephalic, atraumatic. Oral mucosa is moist. CARDIOVASCULAR: Regular rhythm and rate with normal heart sounds 1 and 2. RESPIRATORY: Good air entry bilaterally with no obvious crackle or rhonchi or use of accessory muscles. GI: Full, soft, nontender, nondistended with normal bowel sounds. EXTREMITIES: Left BKA noted. Right lower extremity amputation at the ankle noted with dressing intact. [employer] WORKER: Conscious, alert, oriented x3 with appropriate mental status. DIAGNOSTIC DATA: CBC showed WBC count of 13.2, hemoglobin of 8.1, platelet of 397. CMP showed sodium of 133, potassium 4.0, chloride 105, CO2 of 20, BUN 17, creatinine 1.08, glucose 197, calcium 7.7, total bilirubin 0.4, AST 49, ALT 39, alkaline phosphatase 541, total protein 6.1, albumin 2.2. Vitamin D is 17.4. ASSESSMENT: 1. Acute kidney injury: Due to hemodynamic factors related to volume depletion and sepsis. Improved significantly with improvement of hemodynamics and IV fluid. 2. Hyponatremia: Due to pseudohyponatremia related to hyperglycemia and appropriate ADH secretion injected of volume contraction. Improved with IV fluid therapy. Sodium today is 133. 3. Metabolic acidosis due to sepsis. 4. Vitamin D deficiency. 5. Hypocalcemia due to vitamin D deficiency. 6. Right infected diabetic foot with osteomyelitis, cellulitis and abscess, status post amputation at the ankle. PLAN: 1. Continue crystalloid therapy. 2. Anemia treatment as per primary attending. 3. We will start vitamin D supplementation. 4. We will also start alkaline therapy. 5. We will recheck renal function test in the morning. Further treatment to follow depending on hospital course. Job ID: [id number]
[2019-08-14] MEDS ORDERED: Lidocaine 1% PF 5 ML VIAL ONE (12:42)
[2019-08-14] MEDS ORDERED: PHENYLEPHRINE-NS 100 MCG/ML 10 ML SYRINGE ONE (12:42)
[2019-08-14] MEDS ORDERED: PROPOFOL 200 MG/20 ML VIAL ONE (12:42)
[2019-08-14] MEDS ORDERED: Bupivacaine HCl 0.5%/Epinephrine 1:200,000/PF 30 ml Vial ONE (12:43)
[2019-08-14] MEDS: Sodium Bicarbonate Tab 325 MG TAB PO SCH ×2 (15:11→21:52)
--- NOTE | 2019-08-14 15:51 | PDOC.HOSPP ---
- Subjective Encounter Date: 08/14/19 Encounter Time: 15:49 Subjective: Pt seen for followup re: sepsis. Denies shortness of breath. - Objective Vital Signs & Weight: Vital Signs (12 hours) Temp Pulse Resp BP Pulse Ox 08/14/19 15:08 98.0 F 68 16 158/102 H 98 08/14/19 10:49 98.4 F 77 20 139/89 100 Weight Admit Weight 146 lb Weight 145 lb 15.136 oz Most Recent Monitor Data Heart Rate from ECG 75 NIBP 156/96 NIBP BP-Mean 116 Respiration from ECG 22 SpO2 99 I&O: 08/13/19 08/14/19 08/15/19 06:59 06:59 06:59 Intake Total 2090 4163.6 Output Total 300 2300 750 Balance 1790 1863.6 -750 Result Diagrams: 08/14/19 06:01 08/14/19 06:01 Additional Labs: Accuchecks 08/14/19 08/14/19 08/13/19 11:10 05:40 21:15 POC Glucose 220 H 213 H 280 H 08/13/19 17:43 POC Glucose 343 H Labs and MARs reviewed by me EKG Reviewed by me: Yes (Tele; run of SVT during surgery) Hospitalist ROS - Review of Systems Constitutional: denies: fever, chills, sweats, weakness, malaise Eyes: denies: pain, vision change, conjunctivae inflammation, eyelid inflammation, redness Cardiovascular: denies: chest pain, palpitations, orthopnea, paroxysmal noc. dyspnea, edema, light headedness Gastrointestinal: denies: nausea, vomiting, abdominal pain, diarrhea, constipation, melena, hematochezia Genitourinary: denies: dysuria, frequency, incontinence, hematuria, retention - Medication Medications: Active Medications Generic Name Dose Route Start Last Admin Trade Name Freq PRN Reason Stop Dose Admin Acetaminophen 1,000 mg 08/12/19 20:40 08/14/19 03:32 Tylenol PO 1,000 mg Q8H PRN Administration Moderate to Severe Pain (6-10) Heparin Sodium (Porcine) 5,000 units 08/12/19 21:00 08/14/19 15:11 Heparin SC 5,000 units TID GERI Administration Sodium Chloride 1,000 mls @ 75 mls/hr 08/13/19 10:45 08/14/19 12:10 Normal Saline 0.9% IV 1,000 mls .[id number] GERI Administration Insulin Glargine 10 units/ 0.1 mls @ 0 mls/hr 08/14/19 09:00 08/14/19 12:09 Miscellaneous Medication SC 0.1 mls QAM GERI Administration Ceftriaxone Sodium 2 gm/ 100 mls @ 200 mls/hr 08/13/19 18:00 08/13/19 18:22 Sodium Chloride IVPB 100 mls 1800 GERI Administration Insulin Human Lispro 0 units 08/13/19 18:19 08/14/19 05:55 Humalog SC 4 unit .MODERATE SLIDING SC PRN Administration MODERATE SLIDING SCALE Protocol Metronidazole 250 mg 08/14/19 15:00 08/14/19 15:12 Flagyl PO 250 mg TID GERI Administration Ondansetron HCl 4 mg 08/13/19 07:11 08/13/19 07:23 Zofran SLOW IVP 4 mg Q6H PRN Administration Nausea/Vomiting Sodium Bicarbonate 650 mg 08/14/19 15:00 08/14/19 15:11 Bicarbonate, Sodium PO 650 mg TID GERI Administration - Exam General Appearance: awake alert Eye: anicteric sclera ENT: moist mucosa Neck: supple, symmetric, no JVD, no thyromegaly, no lymphadenopathy Heart: RRR, no gallops, no rubs Respiratory: CTAB, no wheezes, no rales, no ronchi Gastrointestinal: soft, non-tender, non-distended, normal bowel sounds Skin - other findings: s/p R BKA Psychiatric: normal affect, normal behavior, oriented to person, oriented to place Hosp A/P (1) Sepsis Code(s): A41.9 - SEPSIS, UNSPECIFIED ORGANISM Status: Acute (2) SVT (supraventricular tachycardia) Code(s): I47.1 - SUPRAVENTRICULAR TACHYCARDIA Status: Acute (3) Vitamin D deficiency Code(s): E55.9 - VITAMIN D DEFICIENCY, UNSPECIFIED Status: Acute (4) HTN (hypertension) Code(s): I10 - ESSENTIAL (PRIMARY) HYPERTENSION Status: Chronic (5) Diabetic infection of right foot Code(s): E11.628 - TYPE 2 DIABETES MELLITUS WITH OTHER SKIN COMPLICATIONS; L08.9 - LOCAL INFECTION OF THE SKIN AND SUBCUTANEOUS TISSUE, UNSP Status: Chronic (6) DM2 (diabetes mellitus, type 2) Status: Chronic (7) REN (acute kidney injury) Code(s): N17.9 - ACUTE KIDNEY FAILURE, UNSPECIFIED Status: Resolved - Plan continue antibiotics s/p R foot amputation Continue ceftriaxone and metronidazole. COVID19 test negative. REN resolved. Continue accuchecks and SC insulin. Consult cardiology re; SVT. Pt has another procedure planned in two days.
[2019-08-14] MEDS: cefTRIAXone\\ROCEPHIN 2 GM in Sodium Chloride 0.9% 100 ML IVPB SCH (18:14)
--- NOTE | 2019-08-14 19:44 | CON ---
DATE OF CONSULTATION: HISTORY OF PRESENT ILLNESS: The patient is a 53-year-old gentleman with a history of peripheral vascular disease, who developed a rapid irregular heart rhythm. The patient has no previous cardiac history. He underwent an amputation. On telemetry monitoring, he was noted to have rapid heart rate. The patient denied any palpitations. The patient denies having any chest discomfort. He has multiple cardiac risk factors including hypertension, diabetes mellitus, and dyslipidemia. PAST MEDICAL HISTORY: 1. Diabetes mellitus. 2. Hypertension. 3. Dyslipidemia. 4. Peripheral vascular disease. PAST SURGICAL HISTORY: He has had amputation of both lower extremities. SOCIAL HISTORY: Nonsmoker. ALLERGIES: NO KNOWN DRUG ALLERGIES. MEDICATIONS: 1. Metformin 500 b.i.d. 2. Lipitor one tablet at bedtime. 3. Lisinopril 20 daily. 4. Actos one tablet daily. REVIEW OF SYSTEMS: 10-point system otherwise unremarkable. PHYSICAL EXAMINATION: GENERAL: A well-developed gentleman, in no acute distress. VITAL SIGNS: Blood pressure 139/89. NECK: No jugular venous distention. LUNGS: Clear to auscultation. HEART: Regular rate and rhythm. Normal S1 and S2. No murmurs. ABDOMEN: Nondistended. EXTREMITIES: Status post bilateral BKA. LABORATORY DATA: Sodium 133, potassium 4.0, chloride 105, bicarbonate 20, BUN 17, creatinine 1.0, glucose 197. White blood cell count 13.2, hemoglobin 8.1, hematocrit 24.8, platelets are 397. EKG revealed normal sinus rhythm with left atrial enlargement. Telemetry monitoring short run of paroxysmal atrial fibrillation. IMPRESSION: 1. Paroxysmal atrial fibrillation. 2. Status post amputation. 3. Diabetes mellitus. 4. Hypertension. 5. Peripheral vascular disease. 6. Dyslipidemia. This gentleman had a short run of paroxysmal atrial fibrillation. We would recommend the patient to be placed on beta ashanti therapy. The patient does have a CHADS-VASc score of 2. Since he had recent surgery, we would hold anticoagulation at this time. The patient should in the residential be on chronic NOAC. We will follow this patient with you through his hospitalization. Job ID: [id number] [facility]
[2019-08-14] MEDS: Atorvastatin Calcium 40 MG TAB PO SCH (21:52)
[2019-08-14] MEDS ORDERED: HumaLOG 300 UNITS/3 ML VIAL SC PRN (23:09)
[2019-08-15] MEDS: Sodium Chloride 0.9% 1,000 ML IV SCH ×2 (02:40→07:30)
[2019-08-15 05:27] LABS: ALT (SGPT) 31 U/L (8-55); AST (SGOT) 31 U/L (5-34); Albumin 2.2 g/dL (3.5-5.0); Alkaline Phosphatase 482 U/L (40-110); Anion Gap 12 mmol/L (10-20); BUN (Urea Nitrogen) 10 mg/dL (8.4-25.7); Bilirubin, Total 0.2 mg/dL (0.2-1.2); Calc. Creatinine Clearance 85 mL/min (70-130); Calcium 7.6 mg/dL (7.8-10.44); Carbon Dioxide 23 mmol/L (22-29); Chloride 101 mmol/L (98-107); Estimated GFR-MDRD 85; Globulin 3.8 g/dL (2.4-3.5); Glucose 228 mg/dL (70-105); Potassium 3.6 mmol/L (3.5-5.1); Sodium 132 mmol/L (136-145)
[2019-08-15 05:33] LABS: Band 4 % (5-11); Eosinophils 1 % (0-10); Hemoglobin 8.3 g/dL (14.0-18.0); Lymphocytes 16 % (21-51); MDiff Complete? YES; Mean Corpuscular HGB CONC 31.8 g/dL (32.0-36.0); Mean Corpuscular Volume 87.8 fL (78.0-98.0); Mean Platelet Volume 7.4 fL (7.4-10.4); Metamyelocyte 5 % (0-0); Monocytes 8 % (0-10); Myelocyte 3 % (0-0); Neutrophil 63 % (42-75); Platelet Count 398 thou/uL (130-400); RBC Distribution Width 14.1 % (11.5-14.5); Red Blood Cell (RBC) Count 2.97 mill/uL (4.70-6.10); White Blood Cell (WBC) Count 9.4 thou/uL (4.8-10.8)
[2019-08-15] MEDS: HumaLOG 300 UNITS/3 ML VIAL SC PRN ×3 (07:16→17:52)
[2019-08-15] MEDS: Heparin 5,000 UNITS/ML VIAL SC SCH ×2 (08:51→16:59)
[2019-08-15] MEDS: Insulin Glargine 10 UNITS in Pre-Filled Syringe 1 EACH SC SCH (08:51)
[2019-08-15] MEDS: Sodium Bicarbonate Tab 325 MG TAB PO SCH ×3 (08:56→21:07)
[2019-08-15] MEDS: metroNIDAZOLE 250 MG TAB PO SCH ×3 (08:56→21:07)
[2019-08-15] MEDS: Lisinopril 5 MG TAB PO SCH ×2 (11:02→21:07)
--- NOTE | 2019-08-15 14:19 | PRG ---
DATE OF SERVICE: 08/15/2019 SERVICE: Nephrology. SUBJECTIVE: A 53-year-old male seen in followup for acute kidney injury and hyponatremia. The patient was admitted due to worsening right foot wound associated with cellulitis and sepsis. The patient is status post amputation at the ankle yesterday. Feels better. Denied nausea, vomiting, or abdominal pain. OBJECTIVE: VITAL SIGNS: Temperature 98.4, pulse 77, respiratory rate 14, SpO2 of 98% on room air, blood pressure is 167/99. Intake and output in the last 24 hours, the patient took in 1044 with total output of 2400. GENERAL: Comfortable male patient, in no obvious distress. Afebrile. Anicteric. Acyanotic. HEENT: Normocephalic, atraumatic. Oral mucosa is moist. CARDIOVASCULAR: Regular rhythm and rate with normal heart sounds 1 and 2. RESPIRATORY: Fair air entry bilaterally with no crackle or rhonchi or use of accessory muscles. GI: Full, soft, nontender, nondistended with normal bowel sounds. EXTREMITIES: Prior healed left BKA noted. Right amputation at the ankle with dressing noted as well. 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 DIAGNOSTIC DATA: CMP showed sodium 132, potassium 3.6, chloride 101, CO2 of 23, BUN 10, creatinine 0.92, glucose 228, calcium 7.6, total bilirubin 0.2, AST 31, ALT 31, alkaline phosphatase 482, total protein 6.0, albumin 2.0. ASSESSMENT: 1. Acute kidney injury: Resolved. This is due to hemodynamic factors related to shock in a patient on FRANCHESCA inhibitor. 2. Hyponatremia: Due to pseudohyponatremia related to hyperglycemia and appropriate ADH secretion related to volume contraction. Sodium level has improved from 121 on admission to 132 today. 3. Metabolic acidosis, improved. 4. Hypertension: Initial hypotension on admission related to sepsis has resolved. Blood pressure is back on elevated at 160s and above. PLAN: 1. We will discontinue IV fluids at this point. We will make IV fluids KVO for now. 2. We will, however, continue alkali therapy at the end of today. 3. We will monitor blood pressure with discontinuation of IV fluids. We will restart lisinopril also to get BP adequately controlled. 4. Antibiotics as per primary attending. 5. In view of resolved acute kidney injury and improving hyponatremia, Nephrology will sign off at this point. Please call for clarification. Job ID: [id number]
--- NOTE | 2019-08-15 14:21 | PDOC.HOSPP ---
- Subjective Encounter Date: 08/15/19 Encounter Time: 08:00 Subjective: Pt seen for followup re:diabetic foot infection. Feels better today. - Objective Vital Signs & Weight: Vital Signs (12 hours) Temp Pulse Resp BP Pulse Ox 08/15/19 11:25 98.2 F 72 20 163/90 H 99 08/15/19 11:02 64 08/15/19 08:00 98.4 F 77 14 167/99 H 98 08/15/19 03:48 98.6 F 70 16 156/97 H 98 Weight Admit Weight 146 lb Weight 145 lb 15.136 oz Most Recent Monitor Data Heart Rate from ECG 75 NIBP 156/96 NIBP BP-Mean 116 Respiration from ECG 22 SpO2 99 I&O: 08/14/19 08/15/19 08/16/19 06:59 06:59 06:59 Intake Total 4163.6 1044 1630 Output Total 2300 2700 1565 Balance 1863.6 -1656 65 Result Diagrams: 08/15/19 04:51 08/15/19 04:51 Additional Labs: Accuchecks 08/15/19 08/15/19 08/14/19 10:31 06:14 20:35 POC Glucose 316 H 219 H 183 H 08/14/19 16:22 POC Glucose 267 H Labs and MARs reviewed by me EKG Reviewed by me: Yes (Tele: NSR) Hospitalist ROS - Review of Systems Cardiovascular: denies: chest pain, palpitations, orthopnea, paroxysmal noc. dyspnea, edema, light headedness Gastrointestinal: denies: nausea, vomiting, abdominal pain, diarrhea, constipation, melena, hematochezia - Medication Medications: Active Medications Generic Name Dose Route Start Last Admin Trade Name Freq PRN Reason Stop Dose Admin Acetaminophen 1,000 mg 08/12/19 20:40 08/14/19 03:32 Tylenol PO 1,000 mg Q8H PRN Administration Moderate to Severe Pain (6-10) Atorvastatin Calcium 40 mg 08/14/19 21:00 08/14/19 21:52 Lipitor PO 40 mg HS GERI Administration Heparin Sodium (Porcine) 5,000 units 08/12/19 21:00 08/15/19 08:51 Heparin SC 08/15/19 16:00 5,000 units TID GERI Administration Insulin Glargine 10 units/ 0.1 mls @ 0 mls/hr 08/14/19 09:00 08/15/19 08:51 Miscellaneous Medication SC 0.1 mls QAM GERI Administration Ceftriaxone Sodium 2 gm/ 100 mls @ 200 mls/hr 08/13/19 18:00 08/14/19 18:14 Sodium Chloride IVPB 100 mls 1800 GERI Administration Sodium Chloride 1,000 mls @ 10 mls/hr 08/15/19 06:12 08/15/19 07:30 Normal Saline 0.9% IV Not Given .Q24H GERI Insulin Human Lispro 0 units 08/13/19 18:19 08/15/19 11:03 Humalog SC 8 unit .MODERATE SLIDING SC PRN Administration MODERATE SLIDING SCALE Protocol Lisinopril 5 mg 08/15/19 09:00 08/15/19 11:02 Zestril PO 5 mg BID GERI Administration Metoprolol Succinate 25 mg 08/15/19 09:00 08/15/19 08:56 Toprol Xl PO 25 mg DAILY GERI Administration Metronidazole 250 mg 08/14/19 15:00 08/15/19 08:56 Flagyl PO 250 mg TID GERI Administration Ondansetron HCl 4 mg 08/13/19 07:11 08/13/19 07:23 Zofran SLOW IVP 4 mg Q6H PRN Administration Nausea/Vomiting Sodium Bicarbonate 650 mg 08/14/19 15:00 08/15/19 08:56 Bicarbonate, Sodium PO 08/15/19 23:59 650 mg TID GERI Administration - Exam General Appearance: awake alert Eye: anicteric sclera ENT: moist mucosa Neck: supple Heart: RRR Respiratory: CTAB Gastrointestinal: soft, non-tender Musculoskeletal - other findings: s/p R foot amputation, s/p L BKA Psychiatric: normal affect, normal behavior Hosp A/P (1) Sepsis Code(s): A41.9 - SEPSIS, UNSPECIFIED ORGANISM Status: Acute (2) SVT (supraventricular tachycardia) Code(s): I47.1 - SUPRAVENTRICULAR TACHYCARDIA Status: Acute (3) Vitamin D deficiency Code(s): E55.9 - VITAMIN D DEFICIENCY, UNSPECIFIED Status: Acute (4) HTN (hypertension) Code(s): I10 - ESSENTIAL (PRIMARY) HYPERTENSION Status: Chronic (5) Diabetic infection of right foot Code(s): E11.628 - TYPE 2 DIABETES MELLITUS WITH OTHER SKIN COMPLICATIONS; L08.9 - LOCAL INFECTION OF THE SKIN AND SUBCUTANEOUS TISSUE, UNSP Status: Chronic (6) DM2 (diabetes mellitus, type 2) Status: Chronic (7) REN (acute kidney injury) Code(s): N17.9 - ACUTE KIDNEY FAILURE, UNSPECIFIED Status: Resolved - Plan s/p R foot amputation Continue ceftriaxone and metronidazole. COVID19 test negative. REN resolved. Continue accuchecks and SC insulin. Consult cardiology re; SVT. Pt has another procedure planned in two days.
[2019-08-15] MEDS: cefTRIAXone\\ROCEPHIN 2 GM in Sodium Chloride 0.9% 100 ML IVPB SCH (17:52)
[2019-08-15] MEDS: Atorvastatin Calcium 40 MG TAB PO SCH (21:07)
--- NOTE | 2019-08-15 21:17 | PQF ---
DATE: 08-15-19 ATTN: DR. KATE PICKARD Please exercise your independent, professional judgment in responding to the clarification form. Clinical indicators are provided on the bottom of this form for your review Please check appropriate box(s) to clarify if the following diagnosis has been ruled in or ruled out: ATN [ ] Ruled in diagnosis [ ] Continue to treat [ ] Resolved [ ] Ruled out diagnosis [ ] Other diagnosis [ ] Unable to determine In addition, please specify: Present on Admission (POA): [ ] Yes [ ] No [ ] Unable to determine For continuity of documentation, please document condition throughout progress notes and discharge summary. Thank You. CLINICAL INDICATORS - SIGNS / SYMPTOMS / LABS / RESULTS AND LOCATION IN MR: GFR: 08-12-19: 28, 41 08-13-19: 45 08-14-19: 71 08-15-19: 85 CREATININE: 08-12-19: 2.42 08-12-19: 1.72 08-13-19: 1.59 08-14-19: 1.08 08-15-19: 0.92 BUN: 08-12-19: 35 08-12-19: 30 08-13-19: 28 08-14-19: 17 08-15-19: [address] ORTEGA 08-12-19: REN. ACUTE TUBULAR NECROSIS IS A CONCERN. CHRONIC COMPONENT CANNOT BE R/O SINCE MOST OF RECENT LAB RESULT IN THE MEDICAL RECORD WAS DONE ON MARCH 2018. IT SHOWED A CREATININE OF 1.1 CURRENTLY CREATININE IS 2.4. RISK FACTORS / RESULTS AND LOCATION IN MR: CONSULT NOTE DR. ORTEGA 08-12-19: REN. ACUTE TUBULAR NECROSIS IS A CONCERN. CHRONIC COMPONENT CANNOT BE R/O SINCE MOST OF RECENT LAB RESULT IN THE MEDICAL RECORD WAS DONE ON MARCH 2018. IT SHOWED A CREATININE OF 1.1 CURRENTLY CREATININE IS 2.4. TREATMENTS / RESULTS AND LOCATION IN MR: CONSULT NEPHRO DR. ORTEGA 08-12-19 MONITORING SERIES OF LABS 08-12-19 TO 08-15-19 (This form is maintained as a part of the permanent medical record) 2014 [employer]. All Rights Reserved [email or web address] [email or web address] [facility]
[2019-08-16 05:05] LABS: #Eosinphils 0.4 thou/uL (0.0-0.7); #Lymphocytes 2.1 thou/uL (1.20-3.40); #Monocytes 0.6 thou/uL (0.11-0.59); #Neutrophils 5.7 thou/uL (1.40-6.50); %Basophils 0.3 % (0.0-1.0); %Eosinophils 4.6 % (0.0-10.0); %Lymphocytes 23.4 % (21.0-51.0); %Monocytes 7.2 % (0.0-10.0); %Neutrophils 64.4 % (42.0-75.0); Hemoglobin 9.5 g/dL (14.0-18.0); Mean Corpuscular HGB CONC 31.6 g/dL (32.0-36.0); Mean Corpuscular Hemoglobin 27.8 pg (27.0-31.0); Mean Corpuscular Volume 87.9 fL (78.0-98.0); Mean Platelet Volume 7.4 fL (7.4-10.4); Platelet Count 445 thou/uL (130-400); RBC Distribution Width 14.1 % (11.5-14.5); Red Blood Cell (RBC) Count 3.41 mill/uL (4.70-6.10); White Blood Cell (WBC) Count 8.8 thou/uL (4.8-10.8)
[2019-08-16 05:25] LABS: ALT (SGPT) 33 U/L (8-55); AST (SGOT) 38 U/L (5-34); Albumin 2.4 g/dL (3.5-5.0); Alkaline Phosphatase 513 U/L (40-110); Anion Gap 11 mmol/L (10-20); BUN (Urea Nitrogen) 10 mg/dL (8.4-25.7); Bilirubin, Total 0.2 mg/dL (0.2-1.2); Calc. Creatinine Clearance 86 mL/min (70-130); Carbon Dioxide 29 mmol/L (22-29); Chloride 100 mmol/L (98-107); Estimated GFR-MDRD 86; Globulin 4.2 g/dL (2.4-3.5); Glucose 194 mg/dL (70-105); Potassium 3.7 mmol/L (3.5-5.1); Protein, Total 6.6 g/dL (6.0-8.3); Sodium 136 mmol/L (136-145)
[2019-08-16] MEDS: metroNIDAZOLE 250 MG TAB PO SCH ×3 (05:35→21:07)
[2019-08-16] MEDS: Acetaminophen 500 MG TAB PO PRN (05:35)
[2019-08-16] MEDS: Insulin Glargine 10 UNITS in Pre-Filled Syringe 1 EACH SC SCH (08:53)
[2019-08-16] MEDS: Sodium Chloride 0.9% 1,000 ML IV SCH (08:54)
[2019-08-16] MEDS: Lisinopril 5 MG TAB PO SCH (08:54)
--- NOTE | 2019-08-16 11:28 | PDOC.GSPN ---
Surgery Progress Note: Subj - Subjective Narrative: Patient seen yesterday with wound care. The wound was clean and the leg was less swollen. No erythema or drainage. Dr. Meyer of cardiology has seen the patient and his echocardiogram shows a normal ejection fraction. Plan is to proceed with formal below-knee amputation today. Patient expresses understanding and agreement with plan. Surgery Progress Note: Obj - Vital signs Vital signs: Vital Signs - Most Recent Temp Pulse Resp BP Pulse Ox 98.4 F 73 20 155/106 H 99 08/16/19 07:20 08/16/19 08:54 08/16/19 07:20 08/16/19 07:20 08/16/19 07:20 Surgery Progress Note: Results - Labs Result Diagrams: 08/16/19 04:39 08/16/19 04:39 Lab results: Laboratory Results - last 24 hr 08/16/19 08/16/19 08/16/19 04:39 04:39 05:55 WBC 8.8 RBC 3.41 L Hgb 9.5 L Hct 29.9 L MCV 87.9 MCH 27.8 MCHC 31.6 L RDW 14.1 Plt Count 445 H MPV 7.4 Neutrophils % 64.4 Lymphocytes % 23.4 Monocytes % 7.2 Eosinophils % 4.6 Basophils % 0.3 Neutrophils # 5.7 Lymphocytes # 2.1 Monocytes # 0.6 H Eosinophils # 0.4 Basophils # 0.0 Sodium 136 Potassium 3.7 Chloride 100 Carbon Dioxide 29 Anion Gap 11 BUN 10 Creatinine 0.91 Estimated GFR (MDRD) 86 Glucose 194 H POC Glucose 260 H Calcium 8.0 Total Bilirubin 0.2 AST 38 H ALT 33 Alkaline Phosphatase 513 H Serum Total Protein 6.6 Albumin 2.4 L Globulin 4.2 H Albumin/Globulin Ratio 0.6 L 08/16/19 10:30 WBC RBC Hgb Hct MCV MCH MCHC RDW Plt Count MPV Neutrophils % Lymphocytes % Monocytes % Eosinophils % Basophils % Neutrophils # Lymphocytes # Monocytes # Eosinophils # Basophils # Sodium Potassium Chloride Carbon Dioxide Anion Gap BUN Creatinine Estimated GFR (MDRD) Glucose POC Glucose 217 H Calcium Total Bilirubin AST ALT Alkaline Phosphatase Serum Total Protein Albumin Globulin Albumin/Globulin Ratio
[2019-08-16] MEDS ORDERED: Fentanyl 100 MCG/2 ML VIAL ONE (13:22)
[2019-08-16] MEDS ORDERED: Midazolam HCl 2 mg/2 ml Vial ONE (13:22)
[2019-08-16] MEDS ORDERED: Promethazine HCl 25 MG/ML VIAL SLOW IVP PRN (14:35)
[2019-08-16] MEDS ORDERED: Ondansetron HCl/PF 4 MG/2 ML Vial IVP PRN (14:35)
[2019-08-16] MEDS ORDERED: Promethazine HCl 25 MG/ML VIAL IM PRN (14:35)
[2019-08-16] MEDS ORDERED: Lidocaine 1% PF 5 ML VIAL ONE (15:10)
[2019-08-16] MEDS ORDERED: PROPOFOL 200 MG/20 ML VIAL ONE (15:10)
[2019-08-16] MEDS ORDERED: EPHEDRINE 25 MG/5 ML SYRINGE ONE (15:10)
[2019-08-16] MEDS ORDERED: Ondansetron PF 4 MG/2 ML Vial ONE (15:38)
[2019-08-16] MEDS ORDERED: traMADol HCl 50 MG TAB PO PRN ×2 (15:50)
--- NOTE | 2019-08-16 15:57 | PDOC.OP ---
Operative Note - Operative Note Operative Note: PROCEDURE: Right below-knee amputation SURGEON: Timothy Rodarte M.D. 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 He underwent an ankle guillotine amputation to control the infection. The swelling in his leg has gone down and his white count has normalized. He is being brought back to the operating room today for formal BKA. PROCEDURE IN DETAIL: After informed consent was obtained and appropriate preoperative antibiotics administered, the patient was taken to the operating room and was placed in supine position and anesthesia was administered. The leg was prepped and draped in standard sterile fashion with the stump excluded from the field. A short anterior and long posterior flap were measured out and marked on the skin. The skin was incised anteriorly and dissection carried down using electrocautery to the tibia which was cleared anteriorly. The periosteum was elevated proximally and a Gigli saw passed posteriorly. The tibia was transected using the Gigli saw at a level of couple centimeters proximal to the skin incision, angling upward anteriorly to avoid a sharp edge under the skin. The anterior tibial vessels were identified and clamped and ligated. Dissection was carried down to the fibula which was dissected free circumferentially. The periosteum was elevated proximally and rib marc were used to transect the fibula at a level a few centimeters proximal to the tibial transection. The posterior tibial vessels were then dissected free, clamped and ligated. The posterior flap incision was made through the skin using a scalpel and then through subcutaneous tissues to the muscle using Bovie electrocautery. An amputation blade was placed behind the tibia and fibula and the leg amputated. Some bleeding vessels were clamped and ligated. The soleus was trimmed and the posterior flap muscle was trimmed to the appropriate length to allow closure without tension. The nerves were pulled down into the wound, ligated and allowed to retract into the soft tissues. Oozing from the muscle and the subcutaneous tissues was controlled with electrocautery. A bone rasp was used to smooth the edges of the tibia. The fibula was smoothed with rongeurs and the wound was irrigated and hemostasis verified. Muscular fascia was reapproximated over the stump using interrupted [id number] 2-0 Vicryl sutures. The subcutaneous tissues were reapproximated using 3-0 Vicryl sutures and the skin was closed with skin adriana. Xeroform, gauze, Kerlix, and Osorio wrap were used to dress the amputation stump and the patient was placed in a knee immobilizer. The patient was taken to the recovery room in stable condition. There were no complications. ESTIMATED BLOOD LOSS: 100 mL's SPECIMEN: Right distal leg
[2019-08-16] MEDS: HYDROcodone/Acetaminophen 10/325 mg Tablet PO PRN ×2 (16:29→21:05)
[2019-08-16] MEDS: HumaLOG 300 UNITS/3 ML VIAL SC PRN (17:35)
[2019-08-16] MEDS: cefTRIAXone\\ROCEPHIN 2 GM in Sodium Chloride 0.9% 100 ML IVPB SCH (18:10)
--- NOTE | 2019-08-16 18:34 | PDOC.HOSPP ---
- Subjective Encounter Date: 08/16/19 Encounter Time: 18:32 Subjective: Pt seen for followup re: diabetic foot infection. Says he feels fine, has no complaints. - Objective Vital Signs & Weight: Vital Signs (12 hours) Temp Pulse Resp BP Pulse Ox 08/16/19 16:22 98.2 F 89 18 146/93 H 97 08/16/19 11:30 97.9 F 71 16 152/91 H 100 08/16/19 08:54 73 08/16/19 07:20 98.4 F 73 20 155/106 H 99 Weight Admit Weight 145 lb 15.136 oz Weight 145 lb 15.136 oz Most Recent Monitor Data Heart Rate from ECG 75 NIBP 156/96 NIBP BP-Mean 116 Respiration from ECG 22 SpO2 99 I&O: 08/15/19 08/16/19 08/17/19 06:59 06:59 06:59 Intake Total 1044 2780 Output Total 2700 5406 965 Balance -1656 -835 -900 Result Diagrams: 08/16/19 04:39 08/16/19 04:39 Additional Labs: Accuchecks 08/16/19 08/16/19 08/16/19 16:59 10:30 05:55 POC Glucose 232 H 217 H 260 H 08/15/19 19:43 POC Glucose 226 H Labs and MARs reviewed by pr Hospitalist ROS - Review of Systems Cardiovascular: denies: chest pain, palpitations, orthopnea, paroxysmal noc. dyspnea, edema, light headedness Genitourinary: denies: dysuria, frequency, incontinence, hematuria, retention - Medication Medications: Active Medications Generic Name Dose Route Start Last Admin Trade Name Freq PRN Reason Stop Dose Admin Acetaminophen 1,000 mg 08/12/19 20:40 08/16/19 05:35 Tylenol PO 1,000 mg Q8H PRN Administration Moderate to Severe Pain (6-10) Hydrocodone Bitart/Acetaminophen 2 tab 08/16/19 15:49 08/16/19 16:29 [place] 10/325 PO 2 tab Q4H PRN Administration PAIN SCALE 7-10 Atorvastatin Calcium 40 mg 08/14/19 21:00 08/15/19 21:07 Lipitor PO 40 mg HS GERI Administration Insulin Glargine 10 units/ 0.1 mls @ 0 mls/hr 08/14/19 09:00 08/16/19 08:53 Miscellaneous Medication SC Not Given QAM GERI Ceftriaxone Sodium 2 gm/ 100 mls @ 200 mls/hr 08/13/19 18:00 08/16/19 18:10 Sodium Chloride IVPB 100 mls 1800 GERI Administration Sodium Chloride 1,000 mls @ 10 mls/hr 08/15/19 06:12 08/16/19 08:54 Normal Saline 0.9% IV Not Given .Q24H GERI Insulin Human Lispro 0 units 08/13/19 18:19 08/16/19 17:35 Humalog SC 4 unit .MODERATE SLIDING SC PRN Administration MODERATE SLIDING SCALE Protocol Insulin Human Lispro 0 units 08/14/19 23:09 08/15/19 22:12 Humalog SC 2 unit .BEDTIME SLIDING SC PRN Administration Bedtime Correctional Scale Metoprolol Succinate 25 mg 08/15/19 09:00 08/16/19 05:35 Toprol Xl PO 25 mg DAILY GERI Administration Metronidazole 250 mg 08/14/19 15:00 08/16/19 16:29 Flagyl PO 250 mg TID GERI Administration Ondansetron HCl 4 mg 08/13/19 07:11 08/13/19 07:23 Zofran SLOW IVP 4 mg Q6H PRN Administration Nausea/Vomiting - Exam General Appearance: awake alert Eye: anicteric sclera ENT: moist mucosa Neck: supple Heart: RRR Respiratory: CTAB Gastrointestinal: soft, non-tender Extremities: no cyanosis Musculoskeletal - other findings: s/p R BKA (today), s/p L BKA (old) Psychiatric: normal affect Hosp A/P (1) Sepsis Code(s): A41.9 - SEPSIS, UNSPECIFIED ORGANISM Status: Acute (2) SVT (supraventricular tachycardia) Code(s): I47.1 - SUPRAVENTRICULAR TACHYCARDIA Status: Acute (3) Vitamin D deficiency Code(s): E55.9 - VITAMIN D DEFICIENCY, UNSPECIFIED Status: Acute (4) HTN (hypertension) Code(s): I10 - ESSENTIAL (PRIMARY) HYPERTENSION Status: Chronic (5) Diabetic infection of right foot Code(s): E11.628 - TYPE 2 DIABETES MELLITUS WITH OTHER SKIN COMPLICATIONS; L08.9 - LOCAL INFECTION OF THE SKIN AND SUBCUTANEOUS TISSUE, UNSP Status: Chronic (6) DM2 (diabetes mellitus, type 2) Status: Chronic (7) REN (acute kidney injury) Code(s): N17.9 - ACUTE KIDNEY FAILURE, UNSPECIFIED Status: Resolved Plan: Secondarty to ATN, present on admission - Plan continue antibiotics, PT/OT s/p R BKA Pt is on ceftriaxone and metronidazole. COVID19 test negative. Continue accuchecks and SC insulin.
--- NOTE | 2019-08-16 19:04 | PRG ---
DATE OF SERVICE: 08/16/2019 SUBJECTIVE: Mr. Wood had BKA, guillotine amputation. He is feeling better. No headaches. No shortness of breath or abdominal pain. OBJECTIVE: VITAL SIGNS: Essentially normal. LUNGS: Clear. HEART: S1 and S2, regular rate. ABDOMEN: Soft. Not distended or tender. EXTREMITIES: The area of guillotine amputation is noted and the patient had a formal BKA carried out today by Dr. Rodarte. LABORATORY DATA: White cell count is down to 8.8, hemoglobin 9.5 platelets 445, normal differential. Creatinine 0.91. He is currently on Rocephin and Flagyl. For discharge planning, he can be transitioned to oral amoxicillin for few days. Job ID: [id number]
[2019-08-16] MEDS: Lisinopril 10 MG TAB PO SCH (21:03)
[2019-08-16] MEDS: Atorvastatin Calcium 40 MG TAB PO SCH (21:06)
[2019-08-17] MEDS: HYDROcodone/Acetaminophen 10/325 mg Tablet PO PRN ×3 (01:31→19:16)
[2019-08-17] MEDS: Ondansetron PF 4 MG/2 ML Vial SLOW IVP PRN ×2 (01:31→08:18)
[2019-08-17 05:26] LABS: #Eosinphils 0.2 thou/uL (0.0-0.7); #Lymphocytes 1.2 thou/uL (1.20-3.40); #Monocytes 0.8 thou/uL (0.11-0.59); #Neutrophils 11.1 thou/uL (1.40-6.50); %Basophils 0.2 % (0.0-1.0); %Eosinophils 1.3 % (0.0-10.0); %Lymphocytes 9.2 % (21.0-51.0); %Monocytes 5.7 % (0.0-10.0); %Neutrophils 83.6 % (42.0-75.0); Hemoglobin 8.9 g/dL (14.0-18.0); Mean Corpuscular HGB CONC 32.6 g/dL (32.0-36.0); Mean Corpuscular Hemoglobin 28.6 pg (27.0-31.0); Mean Corpuscular Volume 87.5 fL (78.0-98.0); Platelet Count 455 thou/uL (130-400); RBC Distribution Width 14.6 % (11.5-14.5); Red Blood Cell (RBC) Count 3.11 mill/uL (4.70-6.10); White Blood Cell (WBC) Count 13.2 thou/uL (4.8-10.8)
[2019-08-17 05:53] LABS: ALT (SGPT) 27 U/L (8-55); AST (SGOT) 31 U/L (5-34); Albumin 2.6 g/dL (3.5-5.0); Alkaline Phosphatase 425 U/L (40-110); Anion Gap 13 mmol/L (10-20); BUN (Urea Nitrogen) 11 mg/dL (8.4-25.7); Bilirubin, Total 0.2 mg/dL (0.2-1.2); Calc. Creatinine Clearance 96 mL/min (70-130); Calcium 7.7 mg/dL (7.8-10.44); Carbon Dioxide 26 mmol/L (22-29); Chloride 98 mmol/L (98-107); Estimated GFR-MDRD Greater than 90; Glucose 237 mg/dL (70-105); Potassium 3.9 mmol/L (3.5-5.1); Protein, Total 6.6 g/dL (6.0-8.3); Sodium 133 mmol/L (136-145)
[2019-08-17] MEDS: HumaLOG 300 UNITS/3 ML VIAL SC PRN ×3 (05:59→17:28)
[2019-08-17] MEDS ORDERED: Ergocalciferol 1.25 MG(50,000 UNITS) CAP PO SCH (09:00)
[2019-08-17] MEDS: Insulin Glargine 10 UNITS in Pre-Filled Syringe 1 EACH SC SCH (09:45)
[2019-08-17] MEDS: Lisinopril 10 MG TAB PO SCH ×2 (09:45→21:03)
[2019-08-17] MEDS: metroNIDAZOLE 250 MG TAB PO SCH ×3 (09:45→21:05)
[2019-08-17] MEDS: Sodium Chloride 0.9% 1,000 ML IV SCH (12:51)
--- NOTE | 2019-08-17 15:20 | PDOC.CPN ---
- Subjective Date: 08/17/19 Time: 15:28 Interval history: The pt seen and examined. No overnight events. No cardiac complaints. - Objective Allergies/Adverse Reactions: Allergies Allergy/AdvReac Type Severity Reaction Status Date / Time No Known Allergies Allergy Verified 08/12/19 20:25 Visit Medications: Current Medications Acetaminophen (Tylenol) 1,000 mg PO Q8H PRN PRN Reason: Moderate to Severe Pain (6-10) Last Admin: 08/16/19 05:35 Dose: 1,000 mg Hydrocodone Bitart/Acetaminophen ([place] 10/325) 1 tab PO Q4H PRN PRN Reason: PAIN SCALE 4-6 Hydrocodone Bitart/Acetaminophen ([place] 10/325) 2 tab PO Q4H PRN PRN Reason: PAIN SCALE 7-10 Last Admin: 08/17/19 05:59 Dose: 2 tab Atorvastatin Calcium (Lipitor) 40 mg PO HS [facility] Last Admin: 08/16/19 21:06 Dose: 40 mg Bisacodyl (Dulcolax) 10 mg PO DAILYPRN PRN PRN Reason: Constipation Dextrose/Water (Dextrose 50%) 25 gm IVP PRN PRN PRN Reason: HYPOGLYCEMIA PROTOCOL Ergocalciferol (Drisdol) 1.25 mg PO Q7DAYS [facility] Last Admin: 08/17/19 09:52 Dose: 1.25 mg Glucagon (Glucagon) 1 mg IM PRN PRN PRN Reason: HYPOGLYCEMIA PROTOCOL Insulin Glargine 10 units/ (Miscellaneous Medication) 0.1 mls @ 0 mls/hr SC QAM [facility] Last Admin: 08/17/19 09:45 Dose: 0.1 mls Ceftriaxone Sodium 2 gm/ (Sodium Chloride) 100 mls @ 200 mls/hr IVPB 1800 [facility] Last Admin: 08/16/19 18:10 Dose: 100 mls Dextrose/Water (D5w) 1,000 mls @ 0 mls/hr IV INF PRN PRN Reason: HYPOGLYCEMIA PROTOCOL Sodium Chloride (Normal Saline 0.9%) 1,000 mls @ 10 mls/hr IV .Q24H [facility] Last Admin: 08/17/19 12:51 Dose: Not Given Insulin Human Lispro (Humalog) 0 units SC .MODERATE SLIDING SC PRN; Protocol PRN Reason: MODERATE SLIDING SCALE Last Admin: 08/17/19 11:41 Dose: 4 unit Insulin Human Lispro (Humalog) 0 units SC .BEDTIME SLIDING SC PRN PRN Reason: Bedtime Correctional Scale Last Admin: 08/15/19 22:12 Dose: 2 unit Lisinopril (Zestril) 10 mg PO BID [facility] Last Admin: 08/17/19 09:45 Dose: 10 mg Metoprolol Succinate (Toprol Xl) 25 mg PO DAILY [facility] Last Admin: 08/17/19 09:45 Dose: 25 mg Metronidazole (Flagyl) 250 mg PO TID [facility] Last Admin: 08/17/19 15:18 Dose: 250 mg Miscellaneous Medication (Pharmacy To Dose) 1 each IVPB PRN PRN PRN Reason: Pharmacy to dose Ondansetron HCl (Zofran) 4 mg SLOW IVP Q6H PRN PRN Reason: Nausea/Vomiting Last Admin: 08/17/19 08:18 Dose: 4 mg Tramadol HCl (Ultram) 50 mg PO Q4H PRN PRN Reason: PAIN SCALE 4-6 Tramadol HCl (Ultram) 100 mg PO Q4H PRN PRN Reason: PAIN SCALE 7-10 Vital Signs & Weight: Vital Signs Temp Pulse Pulse Pulse Resp BP BP 08/17/19 11:57 97.6 F 83 16 08/17/19 09:05 77 143/90 H 140/92 H 08/17/19 09:03 77 86 143/91 H 140/92 H 08/17/19 08:20 08/17/19 07:59 97.8 F 91 16 08/17/19 03:54 97.6 F 77 16 BP Pulse Ox 08/17/19 11:57 147/96 H 98 08/17/19 09:05 08/17/19 09:03 08/17/19 08:20 96 08/17/19 07:59 133/92 H 96 08/17/19 03:54 121/96 H 96 Admit Weight 145 lb 15.136 oz Weight 145 lb 15.136 oz - Physical Exam General: alert & oriented x3 HEENT: mucus membranes moist Neck: supple neck Cardiac: regular rate and rhythm, S1/S2 Lungs: clear to auscultation Neuro: cranial nerve 2-12 intact - Labs Result Diagrams: 08/17/19 05:09 08/17/19 05:09 Troponin/CKMB Troponin I 0.010 ng/mL (< 0.028) 08/12/19 18:05 - Telemetry Sinus rhythms and dysrhythmias: sinus rhythm - Assessment/Plan Assessment/Plan: 1. Short episode of Afib with RVR - remains in SR; on Metoprolol; will start NOCA once General Surgery service is cleared. 2. Sepsis - managed by Dr Rogers 3. S/p Rt BKA on 08/16/2019 4. HTN 5. DM type 2 6. REN MAR reviewed * Echo in 07/2019 with EF 55-60%, mild MR and TR Pt. seen and eval. by me. I agree with the A/P by the RN EMERGENCY ROOM. He denies any cardiac c/o. He does c/o pain in the right lower extreity stump. RRR. Chest clear. gjmark
[2019-08-17] MEDS: cefTRIAXone\\ROCEPHIN 2 GM in Sodium Chloride 0.9% 100 ML IVPB SCH (17:23)
--- NOTE | 2019-08-17 17:49 | PDOC.HOSPP ---
- Subjective Encounter Date: 08/17/19 Encounter Time: 07:40 Subjective: Pt seen for followup re:sepsis. Feels well, denies any complaints. - Objective Vital Signs & Weight: Vital Signs (12 hours) Temp Pulse Pulse Pulse Resp BP BP 08/17/19 15:06 97.6 F 76 16 08/17/19 11:57 97.6 F 83 16 08/17/19 09:05 77 143/90 H 140/92 H 08/17/19 09:03 77 86 143/91 H 140/92 H 08/17/19 08:20 08/17/19 07:59 97.8 F 91 16 BP Pulse Ox 08/17/19 15:06 123/79 99 08/17/19 11:57 147/96 H 98 08/17/19 09:05 08/17/19 09:03 08/17/19 08:20 96 08/17/19 07:59 133/92 H 96 Weight Admit Weight 145 lb 15.136 oz Weight 145 lb 15.136 oz Most Recent Monitor Data Heart Rate from ECG 75 NIBP 156/96 NIBP BP-Mean 116 Respiration from ECG 22 SpO2 99 I&O: 08/16/19 08/17/19 08/18/19 06:59 06:59 06:59 Intake Total 2780 460 Output Total 3615 1150 200 Balance -835 -690 -200 Result Diagrams: 08/17/19 05:09 08/17/19 05:09 Additional Labs: Accuchecks 08/17/19 08/17/19 08/17/19 17:29 11:00 05:05 POC Glucose 237 H 220 H 230 H 08/16/19 20:44 POC Glucose 199 H Labs and MARs reviewed by wi Hospitalist ROS - Review of Systems Cardiovascular: denies: chest pain, palpitations, orthopnea, paroxysmal noc. dyspnea, edema, light headedness Skin: denies: rash, lesions, caro, bruising - Medication Medications: Active Medications Generic Name Dose Route Start Last Admin Trade Name Freq PRN Reason Stop Dose Admin Acetaminophen 1,000 mg 08/12/19 20:40 08/16/19 05:35 Tylenol PO 1,000 mg Q8H PRN Administration Moderate to Severe Pain (6-10) Hydrocodone Bitart/Acetaminophen 2 tab 08/16/19 15:49 08/17/19 05:59 [place] 10/325 PO 2 tab Q4H PRN Administration PAIN SCALE 7-10 Atorvastatin Calcium 40 mg 08/14/19 21:00 08/16/19 21:06 Lipitor PO 40 mg HS GERI Administration Ergocalciferol 1.25 mg 08/17/19 09:00 08/17/19 09:52 Drisdol PO 1.25 mg Q7DAYS GERI Administration Insulin Glargine 10 units/ 0.1 mls @ 0 mls/hr 08/14/19 09:00 08/17/19 09:45 Miscellaneous Medication SC 0.1 mls QAM GERI Administration Ceftriaxone Sodium 2 gm/ 100 mls @ 200 mls/hr 08/13/19 18:00 08/17/19 17:23 Sodium Chloride IVPB 100 mls 1800 GERI Administration Sodium Chloride 1,000 mls @ 10 mls/hr 08/15/19 06:12 08/17/19 12:51 Normal Saline 0.9% IV Not Given .Q24H GERI Insulin Human Lispro 0 units 08/13/19 18:19 08/17/19 17:28 Humalog SC 4 unit .MODERATE SLIDING SC PRN Administration MODERATE SLIDING SCALE Protocol Insulin Human Lispro 0 units 08/14/19 23:09 08/15/19 22:12 Humalog SC 2 unit .BEDTIME SLIDING SC PRN Administration Bedtime Correctional Scale Lisinopril 10 mg 08/16/19 21:00 08/17/19 09:45 Zestril PO 10 mg BID GERI Administration Metoprolol Succinate 25 mg 08/15/19 09:00 08/17/19 09:45 Toprol Xl PO 25 mg DAILY GERI Administration Metronidazole 250 mg 08/14/19 15:00 08/17/19 15:18 Flagyl PO 250 mg TID GERI Administration Ondansetron HCl 4 mg 08/13/19 07:11 08/17/19 08:18 Zofran SLOW IVP 4 mg Q6H PRN Administration Nausea/Vomiting - Exam General Appearance: awake alert Eye: anicteric sclera ENT: moist mucosa Neck: supple Heart: RRR Respiratory: CTAB Gastrointestinal: soft, non-tender Psychiatric: normal affect, normal behavior Hosp A/P (1) Sepsis Code(s): A41.9 - SEPSIS, UNSPECIFIED ORGANISM Status: Acute (2) SVT (supraventricular tachycardia) Code(s): I47.1 - SUPRAVENTRICULAR TACHYCARDIA Status: Acute (3) Vitamin D deficiency Code(s): E55.9 - VITAMIN D DEFICIENCY, UNSPECIFIED Status: Acute (4) HTN (hypertension) Code(s): I10 - ESSENTIAL (PRIMARY) HYPERTENSION Status: Chronic (5) DM2 (diabetes mellitus, type 2) Status: Chronic (6) Diabetic infection of right foot Code(s): E11.628 - TYPE 2 DIABETES MELLITUS WITH OTHER SKIN COMPLICATIONS; L08.9 - LOCAL INFECTION OF THE SKIN AND SUBCUTANEOUS TISSUE, UNSP Status: Chronic (7) REN (acute kidney injury) Code(s): N17.9 - ACUTE KIDNEY FAILURE, UNSPECIFIED Status: Resolved - Plan s/p R BKA, clinically improving. Continue ceftriaxone and metronidazole. COVID19 test negative. Continue accuchecks and SC insulin.
[2019-08-17] MEDS ORDERED: diphenhydrAMINE 50 MG/ML VIAL IVP PRN (18:49)
[2019-08-17] MEDS: Atorvastatin Calcium 40 MG TAB PO SCH (21:02)
[2019-08-18 05:12] LABS: #Eosinphils 0.5 thou/uL (0.0-0.7); #Lymphocytes 1.8 thou/uL (1.20-3.40); #Monocytes 0.7 thou/uL (0.11-0.59); #Neutrophils 6.8 thou/uL (1.40-6.50); %Basophils 0.3 % (0.0-1.0); %Eosinophils 4.6 % (0.0-10.0); %Lymphocytes 18.7 % (21.0-51.0); %Monocytes 7.4 % (0.0-10.0); %Neutrophils 69.1 % (42.0-75.0); Hemoglobin 8.2 g/dL (14.0-18.0); Mean Corpuscular HGB CONC 31.9 g/dL (32.0-36.0); Mean Corpuscular Hemoglobin 28.4 pg (27.0-31.0); Mean Corpuscular Volume 89.1 fL (78.0-98.0); Mean Platelet Volume 6.9 fL (7.4-10.4); Platelet Count 464 thou/uL (130-400); RBC Distribution Width 14.8 % (11.5-14.5); Red Blood Cell (RBC) Count 2.87 mill/uL (4.70-6.10); White Blood Cell (WBC) Count 9.8 thou/uL (4.8-10.8)
[2019-08-18 05:37] LABS: ALT (SGPT) 23 U/L (8-55); AST (SGOT) 28 U/L (5-34); Albumin 2.5 g/dL (3.5-5.0); Alkaline Phosphatase 345 U/L (40-110); Anion Gap 11 mmol/L (10-20); BUN (Urea Nitrogen) 6 mg/dL (8.4-25.7); Bilirubin, Total 0.2 mg/dL (0.2-1.2); Calc. Creatinine Clearance 103 mL/min (70-130); Calcium 7.7 mg/dL (7.8-10.44); Carbon Dioxide 25 mmol/L (22-29); Chloride 102 mmol/L (98-107); Estimated GFR-MDRD Greater than 90; Glucose 147 mg/dL (70-105); Potassium 3.9 mmol/L (3.5-5.1); Protein, Total 6.5 g/dL (6.0-8.3); Sodium 134 mmol/L (136-145)
[2019-08-18] MEDS: HumaLOG 300 UNITS/3 ML VIAL SC PRN ×2 (06:07→11:05)
[2019-08-18] MEDS: Acetaminophen 500 MG TAB PO PRN (06:10)
[2019-08-18] MEDS: HYDROcodone/Acetaminophen 10/325 mg Tablet PO PRN ×2 (08:27→20:42)
[2019-08-18] MEDS: Insulin Glargine 10 UNITS in Pre-Filled Syringe 1 EACH SC SCH (08:28)
[2019-08-18] MEDS: metroNIDAZOLE 250 MG TAB PO SCH ×3 (08:28→20:43)
[2019-08-18] MEDS: Lisinopril 10 MG TAB PO SCH ×2 (08:28→20:43)
--- NOTE | 2019-08-18 11:12 | PRG ---
DATE OF SERVICE: 08/18/2019 SUBJECTIVE: Mr. Wood has no complaints. His wounds are all dressed. OBJECTIVE: EXTREMITIES: His wounds are dressed. VITAL SIGNS: He is afebrile. Vital signs are stable. ASSESSMENT: Status post right lower extremity amputation. PLAN: Continue antibiotics. Dr. Rodarte to perform staged amputation closure next week. Job ID: [id number]
--- NOTE | 2019-08-18 13:53 | PDOC.HOSPP ---
- Subjective Encounter Date: 08/18/19 Encounter Time: 07:40 Subjective: Pt seen for followup re:sepsis. Denies fevers orf chills. - Objective Vital Signs & Weight: Vital Signs (12 hours) Temp Pulse Pulse Resp BP BP BP 08/18/19 11:55 98.2 F 77 16 08/18/19 11:22 86 96/62 105/67 08/18/19 08:28 100/66 08/18/19 07:50 98.6 F 77 16 08/18/19 05:48 98.5 F 76 18 BP Pulse Ox 08/18/19 11:55 105/67 98 08/18/19 11:22 08/18/19 08:28 97 08/18/19 07:50 100/66 97 08/18/19 05:48 118/79 98 Weight Admit Weight 145 lb 15.136 oz Weight 145 lb 15.136 oz Most Recent Monitor Data Heart Rate from ECG 75 NIBP 156/96 NIBP BP-Mean 116 Respiration from ECG 22 SpO2 99 I&O: 08/17/19 08/18/19 08/19/19 06:59 06:59 06:59 Intake Total 460 230 Output Total 1150 850 Balance -690 -620 Result Diagrams: 08/18/19 04:35 08/18/19 04:35 Additional Labs: Accuchecks 08/18/19 08/18/19 08/17/19 10:39 05:01 20:17 POC Glucose 264 H 157 H 187 H 08/17/19 17:29 POC Glucose 237 H EKG Reviewed by me: Yes (Tele: NSR) Hospitalist ROS - Review of Systems Cardiovascular: denies: chest pain, orthopnea, paroxysmal noc. dyspnea, edema, light headedness Gastrointestinal: denies: nausea, vomiting, abdominal pain, constipation, melena , hematochezia Genitourinary: denies: dysuria, frequency, hematuria, retention - Medication Medications: Active Medications Generic Name Dose Route Start Last Admin Trade Name Freq PRN Reason Stop Dose Admin Acetaminophen 1,000 mg 08/12/19 20:40 08/18/19 06:10 Tylenol PO 1,000 mg Q8H PRN Administration Moderate to Severe Pain (6-10) Hydrocodone Bitart/Acetaminophen 1 tab 08/16/19 15:49 05/31/20 08:27 [place] 10/325 PO 1 tab Q4H PRN Administration PAIN SCALE 4-6 Hydrocodone Bitart/Acetaminophen 2 tab 08/16/19 15:49 08/17/19 05:59 [place] 10/325 PO 2 tab Q4H PRN Administration PAIN SCALE 7-10 Atorvastatin Calcium 40 mg 08/14/19 21:00 08/17/19 21:02 Lipitor PO 40 mg HS GERI Administration Diphenhydramine HCl 25 mg 08/17/19 18:49 08/17/19 19:16 Benadryl IVP 25 mg Q6H PRN Administration Itching & Insomnia Ergocalciferol 1.25 mg 08/17/19 09:00 08/17/19 09:52 Drisdol PO 1.25 mg Q7DAYS GERI Administration Insulin Glargine 10 units/ 0.1 mls @ 0 mls/hr 08/14/19 09:00 08/18/19 08:28 Miscellaneous Medication SC 0.1 mls QAM GERI Administration Ceftriaxone Sodium 2 gm/ 100 mls @ 200 mls/hr 08/13/19 18:00 08/17/19 17:23 Sodium Chloride IVPB 100 mls 1800 GERI Administration Sodium Chloride 1,000 mls @ 10 mls/hr 08/15/19 06:12 08/17/19 12:51 Normal Saline 0.9% IV Not Given .Q24H GERI Insulin Human Lispro 0 units 08/13/19 18:19 08/18/19 11:05 Humalog SC 6 unit .MODERATE SLIDING SC PRN Administration MODERATE SLIDING SCALE Protocol Insulin Human Lispro 0 units 08/14/19 23:09 08/15/19 22:12 Humalog SC 2 unit .BEDTIME SLIDING SC PRN Administration Bedtime Correctional Scale Lisinopril 10 mg 08/16/19 21:00 08/18/19 08:28 Zestril PO 10 mg BID GERI Administration Metoprolol Succinate 25 mg 08/15/19 09:00 08/18/19 08:28 Toprol Xl PO 25 mg DAILY GERI Administration Metronidazole 250 mg 08/14/19 15:00 08/18/19 08:28 Flagyl PO 250 mg TID GERI Administration Ondansetron HCl 4 mg 08/13/19 07:11 08/17/19 08:18 Zofran SLOW IVP 4 mg Q6H PRN Administration Nausea/Vomiting - Exam General Appearance: awake alert Eye: anicteric sclera ENT: moist mucosa Neck: supple Heart: RRR Respiratory: CTAB Gastrointestinal: non-tender, non-distended Musculoskeletal - other findings: s/p old L BKA, recent R BKA Psychiatric: normal affect, normal behavior Hosp A/P (1) Sepsis Code(s): A41.9 - SEPSIS, UNSPECIFIED ORGANISM Status: Acute (2) SVT (supraventricular tachycardia) Code(s): I47.1 - SUPRAVENTRICULAR TACHYCARDIA Status: Acute (3) Vitamin D deficiency Code(s): E55.9 - VITAMIN D DEFICIENCY, UNSPECIFIED Status: Acute (4) DM2 (diabetes mellitus, type 2) Status: Chronic (5) HTN (hypertension) Code(s): I10 - ESSENTIAL (PRIMARY) HYPERTENSION Status: Chronic (6) Diabetic infection of right foot Code(s): E11.628 - TYPE 2 DIABETES MELLITUS WITH OTHER SKIN COMPLICATIONS; L08.9 - LOCAL INFECTION OF THE SKIN AND SUBCUTANEOUS TISSUE, UNSP Status: Resolved (7) REN (acute kidney injury) Code(s): N17.9 - ACUTE KIDNEY FAILURE, UNSPECIFIED Status: Resolved - Plan continue antibiotics, PT/OT clinically improving. s/p R BKA Pt is on ceftriaxone and metronidazole. COVID19 test negative. Continue accuchecks and SC insulin.
[2019-08-18] MEDS ORDERED: Insulin Glargine 5 UNITS in Pre-Filled Syringe 1 EACH SC SCH (14:00)
[2019-08-18] MEDS: Sodium Chloride 0.9% 1,000 ML IV SCH (15:35)
--- NOTE | 2019-08-18 15:57 | PDOC.CPN ---
- Subjective Date: 08/18/19 Time: 15:58 Interval history: The pt seen and examined. No overnight events. No cardiac complaints. - Objective Allergies/Adverse Reactions: Allergies Allergy/AdvReac Type Severity Reaction Status Date / Time No Known Allergies Allergy Verified 08/12/19 20:25 Visit Medications: Current Medications Acetaminophen (Tylenol) 1,000 mg PO Q8H PRN PRN Reason: Moderate to Severe Pain (6-10) Last Admin: 08/18/19 06:10 Dose: 1,000 mg Hydrocodone Bitart/Acetaminophen ([place] 10/325) 1 tab PO Q4H PRN PRN Reason: PAIN SCALE 4-6 Last Admin: 08/18/19 08:27 Dose: 1 tab Hydrocodone Bitart/Acetaminophen ([place] 10/325) 2 tab PO Q4H PRN PRN Reason: PAIN SCALE 7-10 Last Admin: 08/17/19 05:59 Dose: 2 tab Atorvastatin Calcium (Lipitor) 40 mg PO HS [facility] Last Admin: 08/17/19 21:02 Dose: 40 mg Bisacodyl (Dulcolax) 10 mg PO DAILYPRN PRN PRN Reason: Constipation Dextrose/Water (Dextrose 50%) 25 gm IVP PRN PRN PRN Reason: HYPOGLYCEMIA PROTOCOL Diphenhydramine HCl (Benadryl) 25 mg IVP Q6H PRN PRN Reason: Itching & Insomnia Last Admin: 08/17/19 19:16 Dose: 25 mg Ergocalciferol (Drisdol) 1.25 mg PO Q7DAYS [facility] Last Admin: 08/17/19 09:52 Dose: 1.25 mg Glucagon (Glucagon) 1 mg IM PRN PRN PRN Reason: HYPOGLYCEMIA PROTOCOL Ceftriaxone Sodium 2 gm/ (Sodium Chloride) 100 mls @ 200 mls/hr IVPB 1800 GERI Last Admin: 08/17/19 17:23 Dose: 100 mls Dextrose/Water (D5w) 1,000 mls @ 0 mls/hr IV INF PRN PRN Reason: HYPOGLYCEMIA PROTOCOL Sodium Chloride (Normal Saline 0.9%) 1,000 mls @ 10 mls/hr IV .Q24H [facility] Last Admin: 08/18/19 15:35 Dose: Not Given Insulin Glargine 15 units/ (Miscellaneous Medication) 0.15 mls @ 0 mls/hr [facility] [place] [facility] Glargine 5 units/ (Miscellaneous Medication) 0.05 mls @ 0 mls/hr SC NOW [facility] Stop: 08/18/19 16:00 Last Admin: 08/18/19 15:32 Dose: 0.05 mls Insulin Human Lispro (Humalog) 0 units SC .MODERATE SLIDING SC PRN; Protocol PRN Reason: MODERATE SLIDING SCALE Last Admin: 08/18/19 11:05 Dose: 6 unit Insulin Human Lispro (Humalog) 0 units SC .BEDTIME SLIDING SC PRN PRN Reason: Bedtime Correctional Scale Last Admin: 08/15/19 22:12 Dose: 2 unit Lisinopril (Zestril) 10 mg PO BID [facility] Last Admin: 08/18/19 08:28 Dose: 10 mg Metoprolol Succinate (Toprol Xl) 25 mg PO DAILY [facility] Last Admin: 08/18/19 08:28 Dose: 25 mg Metronidazole (Flagyl) 250 mg PO TID [facility] Last Admin: 08/18/19 15:32 Dose: 250 mg Miscellaneous Medication (Pharmacy To Dose) 1 each IVPB PRN PRN PRN Reason: Pharmacy to dose Ondansetron HCl (Zofran) 4 mg SLOW IVP Q6H PRN PRN Reason: Nausea/Vomiting Last Admin: 08/17/19 08:18 Dose: 4 mg Sodium Chloride (Flush - Normal Saline) 10 ml IVF Q12HR [facility] Sodium Chloride (Flush - Normal Saline) 10 ml IVF PRN PRN PRN Reason: Saline Flush Tramadol HCl (Ultram) 50 mg PO Q4H PRN PRN Reason: PAIN SCALE 4-6 Tramadol HCl (Ultram) 100 mg PO Q4H PRN PRN Reason: PAIN SCALE 7-10 Vital Signs & Weight: Vital Signs Temp Pulse Pulse Resp BP BP BP 08/18/19 15:52 97.7 F 69 16 08/18/19 11:55 98.2 F 77 16 08/18/19 11:22 86 96/62 105/67 08/18/19 08:28 100/66 08/18/19 07:50 98.6 F 77 16 08/18/19 05:48 98.5 F 76 18 BP Pulse Ox 08/18/19 15:52 94/69 99 08/18/19 11:55 105/67 98 08/18/19 11:22 08/18/19 08:28 97 08/18/19 07:50 100/66 97 08/18/19 05:48 118/79 98 Admit Weight 145 lb 15.136 oz Weight 145 lb 15.136 oz - Physical Exam General: alert & oriented x3 HEENT: mucus membranes moist Neck: supple neck Cardiac: regular rate and rhythm, S1/S2 Lungs: clear to auscultation, decreased breath sounds Extremities: other: (BLE amputation) - Labs Result Diagrams: 08/18/19 04:35 08/18/19 04:35 Troponin/CKMB Troponin I 0.010 ng/mL (< 0.028) 08/12/19 18:05 - Telemetry Sinus rhythms and dysrhythmias: sinus rhythm - Assessment/Plan Assessment/Plan: 1. Short episode of Afib with RVR - remains in SR; on Metoprolol; will start NOCA once General Surgery service is cleared. 2. Sepsis - managed by Dr Rogers 3. S/p Rt BKA on 08/16/2019 4. HTN 5. DM type 2 6. REN MAR reviewed * Echo in 07/2019 with EF 55-60%, mild MR and TR * Dr Meyer pt
[2019-08-18] MEDS: cefTRIAXone\\ROCEPHIN 2 GM in Sodium Chloride 0.9% 100 ML IVPB SCH (16:56)
[2019-08-18] MEDS: Atorvastatin Calcium 40 MG TAB PO SCH (20:42)
[2019-08-19 04:45] LABS: #Eosinphils 0.5 thou/uL (0.0-0.7); #Lymphocytes 2.1 thou/uL (1.20-3.40); #Monocytes 0.8 thou/uL (0.11-0.59); #Neutrophils 6.3 thou/uL (1.40-6.50); %Basophils 0.1 % (0.0-1.0); %Eosinophils 4.8 % (0.0-10.0); %Lymphocytes 21.3 % (21.0-51.0); %Monocytes 8.3 % (0.0-10.0); %Neutrophils 65.4 % (42.0-75.0); Mean Corpuscular Hemoglobin 28.7 pg (27.0-31.0); Mean Corpuscular Volume 89.7 fL (78.0-98.0); Platelet Count 450 thou/uL (130-400); RBC Distribution Width 15.1 % (11.5-14.5); Red Blood Cell (RBC) Count 2.77 mill/uL (4.70-6.10); White Blood Cell (WBC) Count 9.7 thou/uL (4.8-10.8)
[2019-08-19 05:10] LABS: ALT (SGPT) 23 U/L (8-55); AST (SGOT) 34 U/L (5-34); Albumin 2.6 g/dL (3.5-5.0); Alkaline Phosphatase 296 U/L (40-110); Anion Gap 10 mmol/L (10-20); BUN (Urea Nitrogen) 8 mg/dL (8.4-25.7); Bilirubin, Total 0.2 mg/dL (0.2-1.2); Calc. Creatinine Clearance 96 mL/min (70-130); Calcium 7.8 mg/dL (7.8-10.44); Carbon Dioxide 24 mmol/L (22-29); Chloride 102 mmol/L (98-107); Estimated GFR-MDRD Greater than 90; Glucose 147 mg/dL (70-105); Potassium 3.8 mmol/L (3.5-5.1); Protein, Total 6.6 g/dL (6.0-8.3); Sodium 132 mmol/L (136-145)
[2019-08-19] MEDS ORDERED: Nitroglycerin 100MG/250ML BOT 250 ML ONE (07:25)
[2019-08-19] MEDS ORDERED: Heparin 10,000 UNITS/1 ML VIAL ONE (07:25)
[2019-08-19] MEDS ORDERED: Verapamil 5 MG/2 ML VIAL ONE (07:25)
[2019-08-19] MEDS ORDERED: Insulin Glargine 15 UNITS in Pre-Filled Syringe 1 EACH SC SCH (09:00)
[2019-08-19] MEDS: metroNIDAZOLE 250 MG TAB PO SCH ×2 (09:00→15:56)
[2019-08-19] MEDS: Lisinopril 10 MG TAB PO SCH (09:00)
[2019-08-19] MEDS: HYDROcodone/Acetaminophen 10/325 mg Tablet PO PRN (10:42)
[2019-08-19] MEDS: HumaLOG 300 UNITS/3 ML VIAL SC PRN (12:02)
--- NOTE | 2019-08-19 12:45 | PQF ---
DATE: 08-15-19 ATTN: DR. KATE PICKARD Please exercise your independent, professional judgment in responding to the clarification form. Clinical indicators are provided on the bottom of this form for your review Please check appropriate box(s) to clarify if the following diagnosis has been ruled in or ruled out: ATN [ ] Ruled in diagnosis [ ] Continue to treat [ ] Resolved [ ] Ruled out diagnosis [ ] Other diagnosis [ ] Unable to determine In addition, please specify: Present on Admission (POA): [ ] Yes [ ] No [ ] Unable to determine For continuity of documentation, please document condition throughout progress notes and discharge summary. Thank You. CLINICAL INDICATORS - SIGNS / SYMPTOMS / LABS / RESULTS AND LOCATION IN MR: GFR: 08-12-19: 28, 41 08-13-19: 45 08-14-19: 71 08-15-19: 85 CREATININE: 08-12-19: 2.42 08-12-19: 1.72 08-13-19: 1.59 08-14-19: 1.08 08-15-19: 0.92 BUN: 08-12-19: 35 08-12-19: 30 08-13-19: 28 08-14-19: 17 08-15-19: [address] ORTEGA 08-12-19: REN. ACUTE TUBULAR NECROSIS IS A CONCERN. CHRONIC COMPONENT CANNOT BE R/O SINCE MOST OF RECENT LAB RESULT IN THE MEDICAL RECORD WAS DONE ON MARCH 2018. IT SHOWED A CREATININE OF 1.1 CURRENTLY CREATININE IS 2.4. RISK FACTORS / RESULTS AND LOCATION IN MR: CONSULT NOTE DR. ORTEGA 08-12-19: REN. ACUTE TUBULAR NECROSIS IS A CONCERN. CHRONIC COMPONENT CANNOT BE R/O SINCE MOST OF RECENT LAB RESULT IN THE MEDICAL RECORD WAS DONE ON MARCH 2018. IT SHOWED A CREATININE OF 1.1 CURRENTLY CREATININE IS 2.4. TREATMENTS / RESULTS AND LOCATION IN MR: CONSULT NEPHRO DR. ORTEGA 08-12-19 MONITORING SERIES OF LABS 08-12-19 TO 08-15-19 (This form is maintained as a part of the permanent medical record) 2014 [employer]. All Rights Reserved [email or web address] [employer] [facility]
[2019-08-19] MEDS: Sodium Chloride 0.9% 1,000 ML IV SCH (14:56)
[2019-08-19] MEDS: Acetaminophen 500 MG TAB PO PRN (15:56)
[2019-08-19 16:36] VITALS: BP 100/64; TEMP 98.2
[2019-08-19] MEDS: cefTRIAXone\\ROCEPHIN 2 GM in Sodium Chloride 0.9% 100 ML IVPB SCH (17:58)
[2019-08-19] MEDS ORDERED: Amoxicillin/Potassium Clav 875 MG TAB PO SCH (21:00)
--- NOTE | 2019-08-20 03:38 | DIS ---
DATE OF ADMISSION: 08/12/2019 DATE OF DISCHARGE: 08/19/2019 PRIMARY CARE PROVIDER: [facility]. DISCHARGE DIAGNOSES: 1. Sepsis. 2. Streptococcus agalactiae group B bacteremia. 3. Diabetic foot infection. 4. Status post right below-knee amputation during this hospitalization. 5. Acute kidney injury secondary to acute tubular necrosis, present on admission. 6. Paroxysmal atrial fibrillation. 7. Vitamin D deficiency. 8. Hyponatremia. CONDITION OF THE PATIENT ON THE DAY OF DISCHARGE: Stable. I assessed Mr. Wood on the day of discharge. He denies any chest pain or shortness of breath. Vital signs are stable. S1 and S2 are heard, regular. Lungs are clear to auscultation bilaterally. CONSULTATIONS DURING THIS HOSPITALIZATION: 1. Infectious Disease, Dr. Rogers. 2. General Surgery, Dr. Rodarte. 3. Nephrology, Dr. Koenig. 4. Cardiology, Dr. Meyer. HOSPITAL COURSE: Mr. Wood is a pleasant 53-year-old gentleman, who was admitted to [facility] on August 12, 2019, for sepsis secondary to diabetic right foot infection. He was seen by General Surgery Service and Infectious Disease Services. He received intravenous antibiotics. On August 13, he was taken to the operating room and underwent right leg guillotine amputation of the ankle. On April, he underwent right below-knee amputation. He was also seen by Nephrology Service for ATN, which resolved during this admission. He has been cleared for discharge to rehab. He was seen by Cardiology Service for paroxysmal atrial fibrillation. He will need to start anticoagulation once cleared by Surgical Service. POST-ACUTE CARE FOLLOWUP: With Dr. Meyer in 2 weeks, with Dr. Rodarte in 2 weeks, and with primary care provider in 7 days. ACTIVITY: As tolerated. DIET: Diabetic and heart healthy. DISCHARGE DESTINATION: [facility]. TIME SPENT: Total amount of time spent coordinating this discharge: 32 minutes. DISCHARGE MEDICATIONS: 1. Actos 30 mg daily. 2. Januvia 50 mg daily. 3. Ergocalciferol 1.25 mg every week. 4. Augmentin 875 mg two times a day for 1 week. 5. Lipitor 40 mg at bedtime. 6. Lisinopril 10 mg two times a day. 7. Metformin 1000 mg two times a day. 8. Toprol-XL 25 mg daily. 9. Tylenol Extra Strength p.r.n. 10. Dulcolax p.r.n. 11. Tramadol p.r.n. ADDENDUM: Surgical Service has cleared Mr. Wood for starting anticoagulation. He is being discharged on Eliquis 5 mg two times a day. Job ID: [id number]
== END 2019-08-19 19:00 | DRG 853 ==
LOC: ERS 13:25 → CCU 16:13 → SURG A 08-13 19:37 → 2SE 08-14 10:48
PROVIDERS: ADMIT Internal Medicine; ATTEND Internal Medicine
PROC: 0Y6M0Z0 Detachment at Right Foot, Complete, Open Approach (ICD-10-PCS; principal; 2019-08-14)
PROC: 0Y6H0Z1 Detachment at Right Lower Leg, High, Open Approach (ICD-10-PCS; 2019-08-16)
DX: A40.1 Sepsis due to streptococcus, group B (principal); R65.21 Severe sepsis with septic shock; N17.0 Acute kidney failure with tubular necrosis; E87.1 Hypo-osmolality and hyponatremia; E87.2 Acidosis; M86.171 Other acute osteomyelitis, right ankle and foot; L02.611 Cutaneous abscess of right foot; L03.115 Cellulitis of right lower limb; I47.1 Supraventricular tachycardia; Z20.828 Contact with and (suspected) exposure to other viral communicable diseases; E78.5 Hyperlipidemia, unspecified; I10 Essential (primary) hypertension; E11.65 Type 2 diabetes mellitus with hyperglycemia; K21.9 Gastro-esophageal reflux disease without esophagitis; E55.9 Vitamin D deficiency, unspecified; E11.621 Type 2 diabetes mellitus with foot ulcer; E11.628 Type 2 diabetes mellitus with other skin complications; K29.50 Unspecified chronic gastritis without bleeding; E11.43 Type 2 diabetes mellitus with diabetic autonomic (poly)neuropathy; K31.84 Gastroparesis; E86.0 Dehydration; E83.42 Hypomagnesemia; E11.69 Type 2 diabetes mellitus with other specified complication; E11.51 Type 2 diabetes mellitus with diabetic peripheral angiopathy without gangrene; E11.610 Type 2 diabetes mellitus with diabetic neuropathic arthropathy; I48.0 Paroxysmal atrial fibrillation; Z89.512 Acquired absence of left leg below knee; Z79.4 Long term (current) use of insulin; Z79.84 Long term (current) use of oral hypoglycemic drugs
CPT/HCPCS: 36415; 36416; 36430; 71045; 80053; 81003; 81015; 82010; 82306; 82550; 82570; 82728; 83540; 83550; 83605; 83735; 83930; 83935; 84100; 84156; 84300; 84484; 85025; 86850; 86900; 86901; 87040; 87070; 87077; 87086; 87149; 87186; 87205; 87635; 87804; 88307; 93005; 93010; 93306; 94760; 96365; 96366; 96367; 96376; J0670; J0696; J1200; J1644; J1815; J2001; J2250; J2405; J2543; J2704; J3010; J3370; J3475; J3490; J7050; P9016; U0003